=== PATIENT | female | born 1970 ===

== ENCOUNTER 2022-08-28 16:16 | Inpatient (IN) | payer OTHER, SELFPAY ==
[2022-08-28 17:06] VITALS: BP 163/121; PULSE 100; RESP 14; TEMP 36.4; O2SAT 99; BMI 32.0
[2022-08-28 17:27] VITALS: BP 163/122; PULSE 114; RESP 18; O2SAT 96
--- NOTE | 2022-08-28 17:44 | ED.C_ITS ---
HPI - Psych General: Chief Complaint: Psychiatric Symptoms Stated Complaint: Psych Eval Time Seen by Provider: 08/28/22 17:21 History of Present Illness: 52-year-old female presents to the ER for psychiatric clearance. Patient reports that she agreed to come to the ER because she wants to get rid of her kids patient reports that she has older children that have mental health problems and she reports that they feel that she is having mental health problems. Patient has family members who are hospital staff and they report that she is has a history of bipolar although she does not not admit to it. They report that she is a cousin and has not been acting normal. They believe she is in a manic phase of her bipolar. Patient talks very rapidly. Patient will not admit to having any rapid thoughts. She denies any thoughts of wanting to harm herself or others. Patient requested a letter that she is medically clear and psychiatric clear. Patient does agree to have labs done and agrees to speak with a psychiatrist. Review of Systems Const: Denies: fever(s) or chills Card: Denies: chest pain or palpitations Resp: Denies: dyspnea or productive cough Musc: Denies: neck pain or back pain Skin/Breast: Denies: rash or pruritus Psych: Reports: other (Please see HPI) Physical Exam Const: GENERAL APPEARANCE: cooperative and well kempt Eye: GENERAL EYE: appearance normal, both eyes and all related structures Resp: COMMON NORMALS: normal respiratory effort, No use of accessory muscles and clear to auscultation bilaterally AUSCULTATION: clear to auscultation bilaterally Cardio: COMMON NORMALS: regular rate and regular rhythm RATE: regular rate RHYTHM: regular rhythm Psych: APPEARANCE: Yes well kempt SPEECH: Yes rapid MOOD & AFFECT: Yes elevated mood ATTENTION/CONCENTRATION: Yes attention grossly intact MEMORY/COGNITION: Yes memory grossly intact Skin: COMMON NORMALS: no rashes or lesions noted GENERAL SKIN EXAM: no rashes or lesions noted Course Vital Signs: Vital signs: Vital Signs Temperature 97.5 F L 08/28/22 17:06 Pulse Rate 114 H 08/28/22 17:27 Respiratory Rate 18 08/28/22 17:27 Blood Pressure 163/122 08/28/22 17:27 Pulse Oximetry 96 08/28/22 17:27 Oxygen Delivery Me thod 08/28/22 17:27 MDM - Psych Medical Decision Making Patient is very sporadic in her thoughts and is consistent with a manic episode. 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 Discussed with Dr. Garcia. We will have family fill out an affidavit and will have her placed on a 96-hour hold. Patient to be admitted to the Neuropsych Unit. Patient was stable upon admission Lab Data : 08/28/22 Unknown 08/28/22 Unknown Laboratory Results WBC 8.9 10^3/uL (4.0-10.0) 08/28/22 Unknown RBC 4.89 10^6/uL (4.1-5.3) 08/28/22 Unknown Hgb 14.4 g/dL (11.5-15.3) 08/28/22 Unknown Hct 43.7 % (37.0-47.0) 08/28/22 Unknown MCV 89.4 fl (81-99) 08/28/22 Unknown MCH 29.4 pg (28.0-34.0) 08/28/22 Unknown MCHC 33.0 g/dL (30.0-36.0) 08/28/22 Unknown RDW 12.8 % (12.1-15.1) 08/28/22 Unknown Plt Count 283 10^3/cmm (130-400) 08/28/22 Unknown MPV 9.7 fL (7.4-10.4) 08/28/22 Unknown Neut % (Auto) 63.1 % 08/28/22 Unknown Lymph % (Auto) 26.2 % 08/28/22 Unknown [place] % (Auto) 7.5 % 08/28/22 Unknown Eos % (Auto) 2.0 % 08/28/22 Unknown Baso % (Auto) 0.8 % 08/28/22 Unknown Neut # (Auto) 5.62 10^3/uL (1.8-7.7) 08/28/22 Unknown Lymph # (Auto) 2.3 10^3/uL (0.8-4.8) 08/28/22 Unknown [place] # (Auto) 0.7 10^3/uL (0.2-0.9) 08/28/22 Unknown Eos # (Auto) 0.2 10^3/uL (0.0-0.8) 08/28/22 Unknown Baso # (Auto) 0.1 10^3/uL (0.0-0.1) 08/28/22 Unknown Nucleated RBC % (auto) 0 % 08/28/22 Unknown Nucleated RBCs # 0.0 /100WBC 08/28/22 Unknown Sodium 139 mmol/L (136-145) 08/28/22 Unknown Potassium 3.7 mmol/L (3.5-5.1) 08/28/22 Unknown Chloride 101 mmol/L (98-107) 08/28/22 Unknown Carbon Dioxide 28 mmol/L (22-29) 08/28/22 Unknown Anion Gap 13.7 (5-19) 08/28/22 Unknown BUN 12 mg/dL (6-20) 08/28/22 Unknown Creatinine 0.6 mg/dL (0.5-0.9) 08/28/22 Unknown GFR Calculation 105.4 mL/min (90-130) 08/28/22 Unknown Glucose 118 mg/dL (65-115) H 08/28/22 Unknown Calculated Osmolality 289 mOsm/kg (285-295) 08/28/22 Unknown Calcium 9.6 mg/dL (8.5-10.5) 08/28/22 Unknown Total Bilirubin 0.4 mg/dL (0.15-1.2) 08/28/22 Unknown AST 40 U/L (0-32) H 08/28/22 Unknown ALT 61 U/L (0-33) H 08/28/22 Unknown Alkaline Phosphatase 115 U/L (35-105) H 08/28/22 Unknown Total Protein 7.6 g/dL (6.6-8.7) 08/28/22 Unknown Albumin 4.1 g/dL (3.5-5.2) 08/28/22 Unknown Globulin 3.5 g/dL (1.3-4.6) 08/28/22 Unknown Salicylates < 0.3 mg/dL (3-10) L 08/28/22 Unknown Acetaminophen < 5.0 ug/mL (10-30) L 08/28/22 Unknown Discharge Plan Discharge Condition: Stable Prescriptions: No Action No Known Home Medications Coding Level of Care Code ED Payment Manager for g Fwd Exam Detailed
[2022-08-28 17:54] LABS: Basophils # 0.1 10^3/uL (0.0-0.1); Basophils % 0.8 %; Eosinophils # 0.2 10^3/uL (0.0-0.8); Hematocrit 43.7 % (37.0-47.0); Hemoglobin 14.4 g/dL (11.5-15.3); Lymphocytes # 2.3 10^3/uL (0.8-4.8); Lymphocytes % 26.2 %; Mean Corpuscular Hemoglobin 29.4 pg (28.0-34.0); Mean Corpuscular Volume 89.4 fl (81-99); Mean Platelet Volume 9.7 fL (7.4-10.4); Monocytes # 0.7 10^3/uL (0.2-0.9); Monocytes % 7.5 %; Neutrophils # 5.62 10^3/uL (1.8-7.7); Neutrophils % 63.1 %; Nucleated Red Blood Cells % 0 %; Platelet Count 283 10^3/cmm (130-400); Red Blood Count 4.89 10^6/uL (4.1-5.3); Red Cell Distribution Width 12.8 % (12.1-15.1); White Blood Count 8.9 10^3/uL (4.0-10.0)
[2022-08-28 18:17] LABS: Alanine Aminotransferase 61 U/L (0-33); Albumin Level 4.1 g/dL (3.5-5.2); Alkaline Phosphatase 115 U/L (35-105); Anion Gap 13.7 (5-19); Aspartate Amino Transferase 40 U/L (0-32); Blood Urea Nitrogen 12 mg/dL (6-20); Calcium 9.6 mg/dL (8.5-10.5); Carbon Dioxide 28 mmol/L (22-29); Chloride 101 mmol/L (98-107); Globulin 3.5 g/dL (1.3-4.6); Glomerular Filtration Rate 105.4 mL/min (90-130); Glucose 118 mg/dL (65-115); Osmolality Calculated 289 mOsm/kg (285-295); Potassium 3.7 mmol/L (3.5-5.1); Sodium 139 mmol/L (136-145); Total Bilirubin 0.4 mg/dL (0.15-1.2); Total Protein 7.6 g/dL (6.6-8.7)
[2022-08-28 18:20] LABS: Acetaminophen < 5.0 ug/mL (10-30); Salicylate < 0.3 mg/dL (3-10)
[2022-08-28 20:40] LABS: Add Urine Microscopic? NO; Charge for UA Resulting for Rev
[2022-08-28 20:46] LABS: Urine Appearance Clear (CLEAR); Urine Color Yellow (Yellow); pH Urine 5 (5-7)
[2022-08-28 20:47] LABS: Bilirubin Urine Neg (Negative); Blood Urine Neg (Negative); Glucose Urine UA Norm (Normal); Ketones Urine Negative (Negative); Leukocyte Esterase Urine Negative (Negative); Nitrate Urine Negative (Negative); Protein Urine Neg (Negative); Urobilinogen Urine Norm (Negative)
[2022-08-28 20:55] LABS: Amphetamines Screen Urine Negative (Negative); Barbiturates Screen Urine Negative (Negative); Benzodiazepines Screen Urine Negative (Negative); Cocaine Screen Urine Negative (Negative); Opiate Screen Urine Negative (Negative); PCP Screen Urine Negative (Negative); THC Screen Urine Negative (Negative)
--- NOTE | 2022-08-28 21:42 | PC.NURSE ---
Report given to RADHA Bautista
[2022-08-28 22:24] VITALS: BP 162/95; PULSE 79; RESP 18; TEMP 36.3; O2SAT 99
[2022-08-29 06:00] VITALS: BP 158/88; PULSE 85; RESP 16; TEMP 36.6; O2SAT 97
--- NOTE | 2022-08-29 10:55 | PC.NURSE ---
although initial admission assessment reported patient did not have any dietary restrictions, pt reports she cannot eat pork due to cultural or yazidism reasons. added that in dietary.
[2022-08-29 14:00] VITALS: BP 115/94; PULSE 85; RESP 15; TEMP 36.5; O2SAT 99
--- NOTE | 2022-08-29 15:08 | W.PM.NPUH&PS ---
Providers/Chief Complaint Admitting Physician: Cody Garcia MD Chief Complaint: Psych Eval HPI NPU History of Present Illness Monique Jean is a 52 year old female who presented to the emergency department with the following report: Chief Complaint: Psychiatric Symptoms Stated Complaint: Psych Eval Time Seen by Provider: 08/28/22 17:21 History of Present Illness: 52-year-old female presents to the ER for psychiatric clearance. Patient reports that she agreed to come to the ER because she wants to get rid of her kids patient reports that she has older children that have mental health problems and she reports that they feel that she is having mental health problems. Patient has family members who are hospital staff and they report that she is has a history of bipolar although she does not not admit to it. They report that she is a cousin and has not been acting normal. They believe she is in a manic phase of her bipolar. Patient talks very rapidly. Patient will not admit to having any rapid thoughts. She denies any thoughts of wanting to harm herself or others. Patient requested a letter that she is medically clear and psychiatric clear. Patient does agree to have labs done and agrees to speak with a psychiatrist. The patient was admitted to the neuropsychiatric unit for definitive treatment of those issues. She presents today reporting she has been in multiple inpatient services since 2013 but each of them she describes as some kind of trap that lead to her being hospitalized for inappropriate reasons a couple of times in [place] in [facility] and [place] and 2018 in [place]. She reports one time she did not move for 40 days and another time for 28 days. She was very pressured in her speech and sometimes hard to follow but reported that she has never had outpatient services but has been on medications which she reports she has been tricked to be on and spent much of the time that the 39 medications which have been created in [place] ultimately hurt the person that they are treating. She reports she has been on multiple medications. She denies tobacco, alcohol, marijuana or any other illicit drug use or use in her life. She has not had drug and alcohol treatment or drug and alcohol related charges. She presents today that this is all a part of an elaborate ruse from her son, who she made sure to make known to this resume writer that he was on medications for years, came to see her in [place] where she had been living in some way estranged from her after which they flew to [place] and drove from [facility] to [place] where they had dinner before coming to [place]. She reports [facility] the [facility]. She gives this elaborate story of how when she went in they grabbed her and tried to exorcise her demons from her body and reported that they were very ritualistic and were not letting her move as they tried to get these demons ejected. She reports that when she arrived at that adventism, she discovered her was there, who she had not seen in a while, along with her children and that some physician who was a sales operations consultant and after which she went to the hotel on the first day. On the next day, she went to the sales operations consultant?s house and at that time they once again tried to do this exorcism and try to get rid of demons. She reports she does not know why they decided to bring her here and that all she needs is a letter from the doctor stating that her kids could not pull this kind of trick on her ever again. 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 The words she would use, which were very common words, to attempt to explain to this resume writer that she has lived all over the world in [facility], [place], in [facility], and in different places in the [facility]. She reports the things they were attempting to do to her they must have learned from Giorgio Carroll, who she reports is an apostolic sales operations consultant that teaches these kinds of approaches to dealing with people?s struggles. 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 She talked in very expansive fashion about different topics. She does not believe there is anything going on with her and is not interested in any interventions. She reported that people just need to leave her alone. She could not provide anyone we could speak to that would be able to confirm any aspect of her story. She denies any mental illness, reports she is perfectly fine, and anytime there was a mental health intervention, it was under less than truthful circumstances. Psychiatric History: As above. Substance Abuse History: As above. Family History: She denies any mental health or addiction issues in her family. She denies suicide attempts or completions in her family. Developmental History: She denies any issues with her or , learned to walk and talk and met her developmental milestones on time and denies any need for speech therapy, learning support, emotional support or special education classes. Psychosocial History: She reports her parents were together when she was born and remained together. She has an older and a younger brother. She reports her childhood was fine and she came from a fairly well of family. She denies emotional, physical or sexual abuse. She was hard to follow when we talked about traumas. She could not really elaborate on the difficulties between her and her but did articulate that he came up with Whats[employer] in his cellphone. She endorsed graduating high school, going to college, getting multiple PhDs, Masters degrees, etc. She endorsed she has been 27 years, has a son and daughter and endorses being [place]. 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 She reports she had rented a house in [place] for the last 2 months when her son brought her out here. Legal History: She denies any legal issues. Medical History: She denies any medical issues except that she reports she is going through menopause. She had her children vaginally. Meds NPU Home Medications Medication Instructions Recorded Confirmed Last Taken Type No Known Home Medications 08/28/22 08/28/22 Unknown History Allergies Allergy/AdvReac Type Severity Reaction Status Date / Time No Known Allergies Allergy Verified 08/28/22 18:06 Mental Status Exam MSE Comments: This is an overweight [place] woman in hospital scrubs with limited grooming and eye contact. No abnormal movements except for psychomotor retardation. Cooperative with exam in mild to moderate distress. Speech was increased rate and volume with strong [place] accent suggesting that is her first language. Mood described as fine, affect is elevated. Thought process, organized but with flightive ideas and with tangentiality. Thought content: patient denies suicidal or homicidal ideation, no delusions reported but significant grandiosity noted and some possible persucatory delusions. Attention and concentration are intact and memory appeared reliable though none were formally tested. She is alert and oriented to person, place and time but not purpose. Insight and judgment are impaired. Impulse control is impaired. Vitals/I&O/Wt Last Vital Signs Temp 97.8 F 08/29/22 06:00 Pulse 85 08/29/22 06:00 Resp 16 08/29/22 06:00 BP 158/88 08/29/22 06:00 Pulse Ox 97 08/29/22 06:00 O2 Del Method 08/28/22 22:25 Weight last 48 hrs Weight 79.379 kg Data NPU : 08/28/22 Unknown 08/28/22 Unknown A&P Assessment and plan (1) Keena: (2) Psychosis: Plan This is a 52 year old [place] born woman with a possible history of keena/bipolar disorder in the past who presents appearing manic and off of medication but not believing she needs any assistance, believing that the ones who brought her here are the ones who need help. 1. Continue current medications. Will continue to suggest mood stabilizer. 2. Encourage individual, group and milieu therapy 3. Continue q-15 minute check for safety Involuntary Hold Information 96 Hour Hold: 96 Hour Involuntary Admission: Yes 96 Hour Hold Ending Date: 09/04/22 96 Hour Hold Ending Time: 22:25 Attestations NPU Medical Necessity Statement*: Inpatient hospitalization is medically necessary and the clinically appropriate intervention at this time. We will monitor medications and make changes as indicated. Patient will be in the hospital for over two midnights. Likely length of stay is three to five days. Coding Level of Care Code Acute Rib Puller for Ever Rose Diagnoses Keena F30.9 Psychosis F29
--- NOTE | 2022-08-29 15:38 | PC.NURSE ---
AT APPROXIMATELY 1514 PATIENT WAS ON THE PHONE AND BEGAN YELLING AND WAS ASKED TO QUIET DOWN IT WAS DISRUPTING EVERYONE ELSE. PT STATED, THIS IS HOW WE SPEAK IN MY CULTURE SO PEOPLE WILL LISTEN. AND BEGAN YELLING AGAIN. PHONE TURNED OFF AND PT VERBALIZED UNDERSTANDING THAT YELLING ON THE PHONE WOULD NOT BE TOLERATED.
--- NOTE | 2022-08-29 17:02 | PC.NURSE ---
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
[2022-08-29 20:36] VITALS: PULSE 80; RESP 161; TEMP 36.4
[2022-08-30 06:00] VITALS: RESP 18
[2022-08-30 14:00] VITALS: BP 134/85; PULSE 74; RESP 16; TEMP 36.6; O2SAT 97
--- NOTE | 2022-08-30 17:03 | W.PM.NPUPNS ---
Mental Status Exam MSE Comments: This is an overweight [place] woman in hospital scrubs with limited grooming and eye contact. No abnormal movements except for psychomotor agitation. Cooperative with exam in mild to moderate distress. Speech was pressured with increased rate and volume with strong [place] accent suggesting that is her first language. Mood described as I will be better when you let me out, affect is elevated. Thought process, organized but with flight of ideas and with tangentiality. Thought content: patient denies suicidal or homicidal ideation, no delusions reported but significant grandiosity noted and some possible persecutory delusions. Attention and concentration are intact and memory appeared reliable though none were formally tested. She is alert and oriented to person, place and time but not purpose. Insight and judgment are impaired. Impulse control is impaired. Vitals/I&O/Wt Last Vital Signs Temp 98.2 F 08/30/22 21:56 Pulse 89 08/30/22 21:56 Resp 18 08/30/22 21:56 BP 149/87 08/30/22 21:56 Pulse Ox 98 08/30/22 21:56 O2 Del Method 08/30/22 21:56 Data NPU : 08/28/22 Unknown 08/28/22 Unknown A&P Assessment and plan (1) Juanita: (2) Psychosis: Plan This is a 52 year old Citizen [place] born woman with a possible history of juanita/bipolar disorder in the past who presents appearing manic and off of medication but not believing she needs any assistance, believing that the ones who brought her here are the ones who need help. 1. Continue current medications. Will continue to suggest mood stabilizer. 2. Encourage individual, group and milieu therapy 3. Continue q-15 minute check for safety 4. Pursue collateral information from family. Involuntary Hold Information 96 Hour Hold: 96 Hour Involuntary Admission: Yes 96 Hour Hold Ending Date: 09/04/22 96 Hour Hold Ending Time: 22:25 Attestations NPU Medical Necessity Statement*: Inpatient hospitalization is medically necessary and the clinically appropriate intervention at this time. We will monitor medications and make changes as indicated. Likely length of stay is 4-6 days. Coding Level of Care Code Acute Profiling Machine Setup Operator for Estephanieg Fwd Diagnoses Juanita F30.9 Psychosis F29
[2022-08-30 21:56] VITALS: BP 149/87; PULSE 89; RESP 18; TEMP 36.8; O2SAT 98
--- NOTE | 2022-08-30 21:58 | PC.NURSE ---
Patient's , Dayo Jean is requesting ( via Dr. Bearden ) a call from Dr. Frazier with an update of patient's situation / condition. He is on authorization. to discuss. His Ph. # is [phone]. I put a note on Dr. Frazier's desk.
--- NOTE | 2022-08-31 08:26 | PC.NURSE ---
Behavioral Assessment Patient denies AH/VH. Also denies SI/HI. Patient states she slept well despite her roommate screaming about demons. She said this didn't bother her much. Patient stated she has only been in [place] since Sunday (08/25/22) and then came here because of a dispute with her family. She states she came to [place] to see a [facility] doctor. Patient pleasant this morning.
--- NOTE | 2022-08-31 13:09 | P.NPUPN_ITS ---
Subjective NPU Subjective: Patient presents today continuing to report delusional and grandiose assertions. The more she got frustrated about the prospect of staying as we discussed a 21-day hold the more her assertions escalated and there absurdity. She reported having a neurologist that was the first neurologist in [facility] take her off of her medications. She reported that the [place] government will find out about what we are doing and would come and retrieve her in a way that we would not find pleasing. She had copious writings about people of importance and her connection with them. Mental Status Exam MSE Comments: This is an overweight [place] woman in hospital scrubs with limited grooming and eye contact. No abnormal movements except for psychomotor agitation. Cooperative with exam in mild to moderate distress. Speech was pressured with increased rate and volume with strong [place] accent suggesting that is her first language. Mood described as I just need to leave, affect is elevated. Thought process, organized but with flight of ideas and with tangentiality. Thought content: patient denies suicidal or homicidal ideation, no delusions reported but significant grandiosity noted and some possible perse cutory delusions. Attention and concentration are intact and memory appeared reliable though none were formally tested. She is alert and oriented to person, place and time but not purpose. Insight and judgment are impaired. Impulse control is impaired. Vitals/I&O/Wt Last Vital Signs Temp 98.2 F 08/30/22 21:56 Pulse 89 08/30/22 21:56 Resp 18 08/30/22 21:56 BP 149/87 08/30/22 21:56 Pulse Ox 98 08/30/22 21:56 O2 Del Method 08/30/22 21:56 Data NPU : 08/28/22 Unknown 08/28/22 Unknown A&P Assessment and plan (1) Juanita: (2) Psychosis: Plan This is a 52 year old [place] born woman with a possible history of juanita/bipolar disorder in the past who presents appearing manic and off of medication but not believing she needs any assistance, believing that the ones who brought her here are the ones who need help. 1. Continue current medications. Will continue to suggest mood stabilizer. 2. Encourage individual, group and milieu therapy 3. Continue q-15 minute check for safety 4. File for 21-day hold tomorrow. Involuntary Hold Information 96 Hour Hold: 96 Hour Involuntary Admission: Yes 96 Hour Hold Ending Date: 09/04/22 96 Hour Hold Ending Time: 22:25 Attestations NPU 2 Medical Necessity Statement*: Inpatient hospitalization is medically necessary and the clinically appropriate intervention at this time. We will monitor medica tions and make changes as indicated. Likely length of stay is 7-10 days. Coding Level of Care Code Acute Insole Bottom Filler for [facility] Fwd Diagnoses Juanita F30.9 Psychosis F29
[2022-08-31 14:00] VITALS: BP 150/82; PULSE 71; RESP 16; TEMP 36.7; O2SAT 97
[2022-08-31 21:27] VITALS: BP 148/99; PULSE 96; RESP 17; TEMP 36.5; O2SAT 98
[2022-09-01 06:00] VITALS: BP 148/91; PULSE 65; RESP 16; TEMP 36.3; O2SAT 96
--- NOTE | 2022-09-01 11:19 | W.PM.NPUPNS ---
Subjective NPU Subjective: Patient presents today reporting that we might well kill her trying to practice Hong Konger medicine on her because they do not do medicine like that in [place]. When I brought up the fact that the record suggested that they did just that in her last hospitalization in [facility] she gave some alternative narrative of how that was not really an [place] hospital. She came into all-day about how she should get some food because the medication will take her cognition and take her senses like her taste. She was still refusing medication and we discussed the fact that we filed a 21-day hold. Mental Status Exam MSE Comments: This is an overweight [place] woman in hospital scrubs with limited grooming and eye contact. No abnormal movements except for psychomotor agitation. Cooperative with exam in mild to moderate distress. Speech was pressured with increased rate and volume with strong Salvad[place] accent suggesting that is her first language. Mood described as I am fine I just want to go, affect is elevated and phonetic. Thought process, organized but with flight of ideas and with tangentiality. Thought content: patient denies suicidal or homicidal ideation, no delusions reported but significant grandiosity noted and some possible persecutory delusions, and she denied auditory or visual hallucinations. Attention and concentration are mostly intact and memory appeared unreliable though none were formally tested. She is alert and oriented to person, place and time but not purpose. Insight and judgment are impaired. Impulse control is impaired. Vitals/I&O/Wt Last Vital Signs Temp 97.7 F 08/31/22 21:27 Pulse 96 08/31/22 21:27 Resp 17 08/31/22 21:27 BP 148/99 08/31/22 21:27 Pulse Ox 98 08/31/22 21:27 O2 Del Method 08/31/22 21:27 Data NPU : 08/28/22 Unknown 08/28/22 Unknown A&P Assessment and plan (1) Juanita: (2) Psychosis: Plan This is a 52 year old Salv[place] born woman with a possible history of juanita/bipolar disorder in the past who presents appearing manic and off of medication but not believing she needs any assistance, believing that the ones who brought her here are the ones who need help. 1. Continue current medications. Will continue to suggest mood stabilizer. 2. Encourage individual, group and milieu therapy 3. Continue q-15 minute check for safety 4. Filed for 21-day hold this morning. Involuntary Hold Information 96 Hour Hold: 96 Hour Involuntary Admission: Yes 96 Hour Hold Ending Date: 09/04/22 96 Hour Hold Ending Time: 22:25 Attestations NPU Medical Necessity Statement*: Inpatient hospitalization is medically necessary and the clinically appropriate intervention at this time. We will monitor medications and make changes as indicated. Likely length of stay is 7-10 days. Coding Level of Care Code Acute Forging Press Operator for g Fwd Diagnoses Juainta F30.9 Psychosis F29
--- NOTE | 2022-09-01 13:48 | PC.NURSE ---
Pt is pacing the hallways, almost stomping her feet, excessive speech about protecting ones family and children . She also stated that on sunday the doctor is going to take her taste away and she demanded salt packets. Pt was given salt packets, pt still pacing.
[2022-09-01 14:00] VITALS: BP 121/70; PULSE 81; RESP 16; O2SAT 97
[2022-09-01 21:59] VITALS: BP 133/83; PULSE 72; RESP 15; O2SAT 96
[2022-09-02 06:00] VITALS: BP 115/74; PULSE 54; RESP 20; O2SAT 98
--- NOTE | 2022-09-02 12:52 | P.NPUPN_ITS ---
Subjective NPU Subjective: Patient presents today reporting that things are okay. She was on a geography kick today. 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 Then she went on a rant about being asked by the nurses about her bowel movements. 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 We discussed that she likely served for her 21-day hold hearing on Sunday and that we imagine her hearing will be on Sunday. Mental Status Exam MSE Comments: This is an overweight [place] woman in hospital scrubs with limited grooming and eye contact. No abnormal movements except for psychomotor agitation. Cooperative with exam in mild to moderate distress. Speech was press ured with increased rate and volume with strong [place] accent suggesting that is her first language. Mood described as I do not really want to talk you, affect is elevated and frenetic. Thought process, organized but with flight of ideas and with tangentiality. Thought content: patient denies suicidal or homicidal ideation, no delusions reported but significant grandiosity noted and some possible persecutory delusions, and she denied auditory or visual hallucinations. Attention and concentration are mostly intact and memory appeared unreliable though none were formally tested. She is alert and oriented to person, place and time but not purpose. Insight and judgment are impaired. Impulse control is impaired. Vitals/I&O/Wt Last Vital Signs Temp 97.4 F L 09/01/22 06:00 Pulse 54 L 09/02/22 06:00 Resp 20 H 09/02/22 06:00 BP 115/74 09/02/22 06:00 Pulse Ox 98 09/02/22 06:00 O2 Del Method 09/01/22 14:00 Data NPU : 08/28/22 Unknown 08/28/22 Unknown A&P Assessment and plan (1) Juanita: (2) Psychosis: Plan This is a 52 year old [place] born woman with a possible history of juanita/bipolar disorder in the past who presents appearing manic and off of medication but not believing she needs any assistance, believing that the ones who brought her here are the ones who need help. 1. Continue current medications. Will continue to suggest mood stabilizer. 2. Encourage individual, group and milieu therapy 3. Continue q-15 minute check for safety 4. Filed for 21-day hold 09/01/2022. Involuntary Hold Information 96 Hour Hold: 96 Hour Involuntary Admission: Yes 96 Hour Hold Ending Date: 09/04/22 96 Hour Hold Ending Time: 22:25 Attestations NPU Medical Necessity Statement*: Inpatient hospitalization is medically necessary and the clinically appropriate intervention at this time. We will monitor medications and make changes as indicated. Likely length of stay is 7-10 days. Coding Level of Care Code Acute Irrigator Valve Pipe for Ever Fwd Diagnoses Juanita F30.9 Psychosis F29
[2022-09-02 14:00] VITALS: BP 133/89; PULSE 93; RESP 16; TEMP 36.8; O2SAT 97
[2022-09-02 19:11] VITALS: RESP 16
[2022-09-03 06:00] VITALS: BMI 32.0
--- NOTE | 2022-09-03 10:36 | PC.NURSE ---
IN ROOM. VERY ANIMATED DURING ASSESSMENT. YELLING AND STATING SHE HAD AN EXORCISM AND THAT IS WHY SHE IS HERE. PT WAS VERBALLY DESCALATED AND IS NOW IN THE DAY ROOM READING THE EVANGELICAL BIBLE. DENIES SI/HI AND AVH AT THIS TIME. STATES THESE QUESTIONS ARE RIDICULOUS AND HER HOLD IS UP TOMORROW AND SHE WANTS TO LEAVE. PT ALSO STATES I'M TRYING TO TEACH DR. GREEN LESSONS, HE DOESN'T KNOW NOTHING ABOUT NOTHING. I GUESS MY SON SENT ME HERE TO TEACH HIM. PT THEN PICKED UP HER 96 HOUR HOLD PAPER WORK AND STARTED YELLING SEE THIS IS WHY I'M HERE. THE PAPER HAD THE WORD EXORCISM WRITTEN ON THE BACK. SHE STATES HER SON HAD DONE THE EXERCISM FOR 4 DAYS THEN SENT HER HERE. ANXIETY MEDS OFFERED BUT PT DECLINED.
--- NOTE | 2022-09-03 10:51 | W.PM.NPUPNS ---
Subjective NPU Subjective: Patient presents today reporting that she is not interested in taking medication and that she just wants to go back to [place]. She now reports that one of the reasons why she does not want take medication is that she is not in fact Pentecostal she is Yarsanism and she reports that Hindus do not take psychiatric medications. We discussed that that is not true and that even if she is going back to [place] we need to ensure she is safe prior to discharge. We discussed that we are unsure why she was not served on Sunday, but that she would likely be served tomorrow and have her hearing Sunday or Sunday. We spent quite a bit of time discussing what juanita is as she tries to debunk the idea that she is manic. Mental Status Exam MSE Comments: This is an overweight Citizen [place] woman in hospital scrubs with adequate grooming and eye contact. No abnormal movements except for occasional psychomotor agitation. Cooperative with exam in mild to moderate distress. Speech was pressured with increased rate and volume with strong [place] accent suggesting that is her first language. Mood described as I am fine, affect is less elevated and frenetic at times. Thought process, organized but with flight of ideas and with tangentiality. Thought content: patient denies suicidal or homicidal ideation, no delusions reported but significant grandiosity noted and some possible persecutory delusions, and she denied auditory or visual hallucinations. Attention and concentration are mostly intact and memory appeared unreliable though none were formally tested. She is alert and oriented to person, place and time but not purpose. Insight and judgment are impaired. Impulse control is impaired. Vitals/I&O/Wt Last Vital Signs Temp 98.2 F 09/02/22 14:00 Pulse 93 09/02/22 14:00 Resp 16 09/02/22 19:11 BP 133/89 09/02/22 14:00 Pulse Ox 97 09/02/22 14:00 O2 Del Method 09/01/22 14:00 Data NPU : 08/28/22 Unknown 08/28/22 Unknown A&P Assessment and plan (1) Juanita: (2) Psychosis: Plan This is a 52 year old Citizen [place] born woman with a possible history of juanita/bipolar disorder in the past who presents appearing manic and off of medication but not believing she needs any assistance, believing that the ones who brought her here are the ones who need help. 1. Continue current medications. Will continue to suggest mood stabilizer. 2. Encourage individual, group and milieu therapy 3. Continue q-15 minute check for safety 4. Filed for 21-day hold 09/01/2022. Involuntary Hold Information 96 Hour Hold: 96 Hour Involuntary Admission: Yes 96 Hour Hold Ending Date: 09/04/22 96 Hour Hold Ending Time: 22:25 Attestations NPU Medical Necessity Statement*: Inpatient hospitalization is medically necessary and the clinically appropriate intervention at this time. We will monitor medications and make changes as indicated. Likely length of stay is 7-10 days. Coding Level of Care Code Acute Domestic Housekeeper for g Fwd Diagnoses Juanita F30.9 Psychosis F29
[2022-09-03 14:00] VITALS: BP 115/77; PULSE 76; RESP 16; TEMP 36.4; O2SAT 95
[2022-09-03 21:12] VITALS: BP 104/66; PULSE 86; RESP 17; TEMP 37; O2SAT 98
[2022-09-04 14:00] VITALS: BP 146/94; PULSE 86; RESP 18; O2SAT 99
--- NOTE | 2022-09-04 14:34 | P.NPUPN_ITS ---
Subjective NPU Subjective: Patient presented today continuing to have manic symptoms and being very focused on her irritation at her family trapping her and the likelihood that she is going to be here for a while taking medication. We discussed her hearing which is supposed to be Sunday now. She continues to be resistant to medication and we continue to discuss that taking the medication is her fastest route to discharge. Mental Status Exam MSE Comments: This is an overweight [place] woman in hospital scrubs with jaqueline quate grooming and eye contact. No abnormal movements except for occasional psychomotor agitation. Cooperative with exam in mild to moderate distress. Speech was pressured with increased rate and volume with strong [place] accent suggesting that is her first language. Mood described as upset with her and family, affect is elevated and frenetic at times. Thought process, organized but with flight of ideas and with tangentiality. Thought content: patient denies suicidal or homicidal ideation, no delusions reported but significant grandiosity noted and some possible persecutory delusions, and she denied auditory or visual hallucinations. Attention and concentration are mostly intact and memory appeared unreliable though none were formally tested. She is alert and oriented to person, place and time but not purpose. Insight and judgment are impaired. Impulse control is impaired. Vitals/I&O/Wt Last Vital Signs Temp 98.6 F 09/03/22 21:12 Pulse 86 09/03/22 21:12 Resp 17 09/03/22 21:12 BP 104/66 09/03/22 21:12 Pulse Ox 98 09/03/22 21:12 O2 Del Method 09/03/22 21:12 Weight last 48 hrs Weight 79.379 kg Data NPU : 08/28/22 Unknown 08/28/22 Unknown A&P Assessment and plan (1) Juanita: (2) Psychosis: Plan This is a 52 year old [place] born woman with a possible history of juanita/bipolar disorder in the past who presents appearing manic and off of medication but not believing she needs any assistance, believing that the ones who brought her here are the ones who need help. 1. Continue current medications. Will continue to suggest mood stabilizer. 2. Encourage individual, group and milieu therapy 3. Continue q-15 minute check for safety 4. Filed for 21-day hold 09/01/2022, hearing will be 09/06/2022. Involuntary Hold Information 96 Hour Hold: 96 Hour Involuntary Admission: Yes 96 Hour Hold Ending Date: 09/04/22 96 Hour Hold Ending Time: 22:25 Attestations NPU Medical Necessity Statement*: Inpatient hospitalization is medically necessary and the clinically appropriate intervention at this time. We will monitor medications and make changes as indicated. Likely length of stay is 7-10 days. Coding Level of Care Code Acute River Boat Captain for g Fwd Diagnoses Juanita F30.9 Psychosis F29
[2022-09-04 22:00] VITALS: BP 155/77; PULSE 90; RESP 17; TEMP 36.7; O2SAT 97
[2022-09-05 06:00] VITALS: BP 124/84; PULSE 79; RESP 16; TEMP 36.4; O2SAT 94
[2022-09-05 14:00] VITALS: BP 130/80; PULSE 82; RESP 20; TEMP 36.6; O2SAT 98
--- NOTE | 2022-09-05 17:47 | W.PM.NPUPNS ---
Subjective NPU Subjective: Patient presents today fairly agitated throughout the day pacing the halls, having random conversations with people and seeming fairly agitated. She did visit with her son with similar behavior. She continues to be resistant to medication. She was finally served by the [facility] and will have her 21-day hold hearing tomorrow. We once again reviewed the process with her and her family. Mental Status Exam MSE Comments: This is an overweight [place] woman in hospital scrubs with adequate grooming and eye contact. No abnormal movements except for significant psychomotor agitation. Cooperative with exam in moderate to extreme distress. Speech was pressured with increased rate and volume with strong [place] accent suggesting that is her first language. Mood described as upset with her and family, affect is elevated and frenetic. Thought process, organized but with flight of ideas and with tangentiality. Thought content: patient denies suicidal or homicidal ideation, no delusions reported but significant grandiosity noted and some possible persecutory delusions, and she denied auditory or visual hallucinations. Attention and concentration are mostly intact and memory appeared unreliable though none were formally tested. She is alert and oriented to person, place and time but not purpose. Insight and judgment are impaired. Impulse control is impaired. Vitals/I&O/Wt Last Vital Signs Temp 97.9 F 09/05/22 21:58 Pulse 87 09/05/22 21:58 Resp 16 09/05/22 21:58 BP 134/86 09/05/22 21:58 Pulse Ox 97 09/05/22 21:58 O2 Del Method 09/05/22 21:58 Data NPU : 08/28/22 Unknown 08/28/22 Unknown A&P Assessment and plan (1) Juanita: (2) Psychosis: Plan This is a 52 year old [place] born woman with a possible history of juanita/bipolar disorder in the past who presents appearing manic and off of medication but not believing she needs any assistance, believing that the ones who brought her here are the ones who need help. 1. Continue current medications. Will continue to suggest mood stabilizer. 2. Encourage individual, group and milieu therapy 3. Continue q-15 minute check for safety 4. Filed for 21-day hold 09/01/2022, hearing will be tomorrow, 09/06/2022 at 1 PM. Involuntary Hold Information 96 Hour Hold: 96 Hour Involuntary Admission: Yes 96 Hour Hold Ending Date: 09/04/22 96 Hour Hold Ending Time: 22:25 Attestations NPU Medical Necessity Statement*: Inpatient hospitalization is medically necessary and the clinically appropriate intervention at this time. We will monitor medications and make changes as indicated. Likely length of stay is 7-10 days. Coding Level of Care Code Acute Table And Desk Finisher for Chg Fwd Diagnoses Juanita F30.9 Psychosis F29
[2022-09-05 21:58] VITALS: BP 134/86; PULSE 87; RESP 16; TEMP 36.6; O2SAT 97
[2022-09-06 06:00] VITALS: BP 132/76; PULSE 76; RESP 18; TEMP 36.4; O2SAT 98
--- NOTE | 2022-09-06 12:06 | W.CSC.PSA ---
[facility] Psychosocial Assessment Substance Use History Alcohol or Other Drug Used past 6 months Prior use? (lifetime) Route of Use Frequency (past 6 months) Duration (of use) Date of last use Alcohol Amphetamines (meth, ice, crank) Cocaine Heroin Opioid /Opiates (misuse or w/out prescription) Marijuana (cbd, dabs) Sedatives (Benzo, sleep meds) (misuse or w/out prescription) Hallucinogens Inhalants Over the Counter (Cough syrup, Diet) Nicotine (cigarettes, chew, vape) Other
[2022-09-06 14:00] VITALS: BP 156/88; PULSE 87; RESP 17; TEMP 36.7; O2SAT 99
--- NOTE | 2022-09-06 14:44 | P.NPUPN_ITS ---
Subjective NPU Subjective: Patient presented today feeling fairly upset about being in the hospital. Pacing back and forth and stopping and every person she passed giving them some measure of advice. She refused to go to her hearing but then when this inspector automatic typewriter returned and she was advised that she was placed on a 21-day hold, was requested to see the outside plant engineer. We discussed the risks, benefits and alternatives of the medications recommended. We advised her that given her previous success with Abilify, we would start the oral and the Abilify Maintena 400 mg IM. At that point she went on a tirade yelling about all the fat, black body parts of this inspector automatic typewriter. Mental Status Exam MSE Comments: This is an overweight [place] woman in hospital scrubs with adequate grooming and eye contact. No abnormal movements except for significant psychomotor agitation. Cooperative with exam in moderate to extreme distress. Speech was pressured with increased rate and volume with strong [place] accent suggesting that is her first language. Mood described as this inspector automatic typewriter is going to kill her, affect is elevated and frenetic. Thought process, organized but with flight of ideas and with tangentiality. Thought content: patient denies suicidal or homicidal ideation, no delusions reported but significant grandiosity noted as well as some paranoid and persecutory delusions, and she denied auditory or visual hallucinations. Attention and concentration are mostly intact and memory appeared unreliable though none were formally tested. She is alert and oriented to person, place and time but not purpose. Insight and judgment are impaired. Impulse control is impaired. Vitals/I&O/Wt Last Vital Signs Temp 98.1 F 09/06/22 14:00 Pulse 87 09/06/22 14:00 Resp 17 09/06/22 14:00 BP 156/88 09/06/22 14:00 Pulse Ox 99 09/06/22 14:00 O2 Del Method 09/06/22 06:00 Data NPU : 08/28/22 Unknown 08/28/22 Unknown A&P Assessment and plan (1) Juanita: (2) Psychosis: Plan This is a 52 year old [place] born woman with a possible history of juanita/bipolar disorder in the past who presents appearing manic and off of medication but not believing she needs any assistance, believing that the ones who brought her here are the ones who need help. 1. Continue current medications. Start Abilify 10 mg p.o. every morning with likely titration to 15 mg in a few days. Administer Abilify Maintena 400 mg IM 2. Encourage individual, group and milieu therapy 3. Continue q-15 minute check for safety 4. 21-day hold granted with final day of 21-day hold 09/27/2022. Involuntary Hold Information 96 Hour Hold: 96 Hour Involuntary Admission: Yes 96 Hour Hold Ending Date: 09/04/22 96 Hour Hold Ending Time: 22:25 Attestations NPU Medical Necessity Statement*: Inpatient hospitalization is medically necessary and the clinically appropriate intervention at this time. We will monitor medications and make changes as indicated. Likely length of stay is 7-10 days. Coding Level of Care Code Acute Body Presser for Ever Rose Diagnoses Juanita F30.9 Psychosis F29
[2022-09-06] MEDS: diphenhydrAMINE 50 mg/mL SDV 1mL IM (16:00)
[2022-09-06] MEDS: haloperidol inj 5 mg/mL INJ 1 mL IM (16:00)
[2022-09-06] MEDS: LORazepam 2 mg/mL INJ 1 mL IM (16:00)
[2022-09-06] MEDS: ARIPiprazole 10 mg Tablet PO (18:33)
[2022-09-06] MEDS: ARIPiprazole Maintena 400 MG IM (18:34)
--- NOTE | 2022-09-07 10:11 | P.NPUPN_ITS ---
Subjective NPU Subjective: Patient presents today seeming to have had a significant impact on the medications yesterday. She was calmer but also more isolative and not hyper or kinetic. She denies any issues it is reported she was resting. Denies any side effects of the medications. Mental Status Exam MSE Comments: This is an overweight woman in hospital scrubs with adequate grooming and eye contact. No abnormal movements except for significant psychomotor retardation. Cooperative with exam in no acute distress. Speech was decreased rate and volume. Mood described as a little tired, affect is congruent. Thought process, organized, thought content: patient denies suicidal or homicidal ideation, no delusions reported or noted and she denied auditory or visual hallucinations. Attention and concentration are mostly intact and memory appeared unreliable though none were formally tested. She is alert and oriented to person, place and time but not purpose. Insight and judgment are impaired. Impulse control is impaired. Vitals/I&O/Wt Last Vital Signs Temp 98.1 F 09/06/22 14:00 Pulse 87 09/06/22 14:00 Resp 17 09/06/22 14:00 BP 156/88 09/06/22 14:00 Pulse Ox 99 09/06/22 14:00 O2 Del Method 09/06/22 06:00 Data NPU : 08/28/22 Unknown 08/28/22 Unknown A&P Assessment and plan (1) Juanita: (2) Psychosis: Plan This is a 52 year old born woman with a possible history of juanita/bipolar disorder in the past who presents appearing manic and off of medication but not believing she needs any assistance, believing that the ones who brought her here are the ones who need help. 1. Continue current medications. Started Abilify 10 mg p.o. every morning with likely titration to 15 mg in a few days. Administer Abilify Maintena 400 mg IM 2. Encourage individual, group and milieu therapy 3. Continue q-15 minute check for safety 4. 21-day hold granted with final day of 21-day hold 09/27/2022. Involuntary Hold Information 96 Hour Hold: 96 Hour Involuntary Admission: Yes 96 Hour Hold Ending Date: 09/04/22 96 Hour Hold Ending Time: 22:25 Attestations NPU Medical Necessity Statement*: Inpatient hospitalization is medically necessary and the clinically appropriate intervention at this time. We will monitor medications and make changes as indicated. Likely length of stay is 6-9 days. Coding Level of Care Code Acute Healthcare Technician for g Fwd Diagnoses Juanita F30.9 Psychosis F29
[2022-09-07] MEDS: ARIPiprazole 10 mg Tablet PO (11:03)
[2022-09-07 14:00] VITALS: BP 126/79; PULSE 94; RESP 18; TEMP 36.9; O2SAT 97
[2022-09-07 20:01] VITALS: BP 143/90; PULSE 91; RESP 17; TEMP 36.3; O2SAT 97
[2022-09-08 06:00] VITALS: RESP 17
[2022-09-08] MEDS: ARIPiprazole 10 mg Tablet PO (11:03)
[2022-09-08 14:00] VITALS: BP 147/63; PULSE 89; RESP 18; TEMP 36.2; O2SAT 96
--- NOTE | 2022-09-08 17:08 | P.NPUPN_ITS ---
Subjective NPU Subjective: Patient presents today reporting that she feels the medication she received is what made her feel sick. She did have emesis this morning and we discussed the fact that that is not a reaction that we see to Abilify. And that she is probably just having some kind of stomach problem. Otherwise reports that she feels her energy is a taken from her and she normally active and now she has been laying around for a couple days. We discussed the medication was intended to treat her juanita and that we hope she will adjust to it as he had previously in [place]. Mental Status Exam MSE Comments: This is an overweight [place] woman in hospital scrubs with adequate grooming and eye contact. No abnormal movements except for significant psychomotor retardation. Cooperative with exam in mild distress. Speech was decreased rate and volume. Mood described as tired and a little sick, affect is congruent. Thought process, organized, thought content: patient denies suicidal or homicidal ideation, no delusions reported or noted and she denied auditory or visual hallucinations. Attention and concentration are mostly intact and memory appeared unreliable though none were formally tested. She is alert and oriented to person, place and time but not purpose. Insight and judgment are impaired. Impulse control is impaired. Vitals/I&O/Wt Last Vital Signs Temp 97.2 F L 09/08/22 14:00 Pulse 89 09/08/22 14:00 Resp 18 09/08/22 14:00 BP 147/63 09/08/22 14:00 Pulse Ox 96 09/08/22 14:00 O2 Del Method 09/08/22 14:00 Data NPU : 08/28/22 Unknown 08/28/22 Unknown A&P Assessment and plan (1) Juanita: (2) Psychosis: Plan This is a 52 year old [place] born woman with a possible history of juanita/bipolar disorder in the past who presents appearing manic and off of medication but not believing she needs any assistance, believing that the ones who brought her here are the ones who need help. 1. Continue current medications. Started Abilify 10 mg p.o. every morning with likely titration to 15 mg in a few days. Administered Abilify Maintena 400 mg IM 09/06/22. 2. Encourage individual, group and milieu therapy 3. Continue q-15 minute check for safety 4. 21-day hold granted with final day of 21-day hold 09/27/2022. Involuntary Hold Information 96 Hour Hold: 96 Hour Involuntary Admission: Yes 96 Hour Hold Ending Date: 09/04/22 96 Hour Hold Ending Time: 22:25 Attestations NPU Medical Necessity Statement*: Inpatient hospitalization is medically necessary and the clinically appropriate intervention at this time. We will monitor medications and make changes as indicated. Likely length of stay is 6-9 days. Coding Level of Care Code Acute Poultry Slaughterer for g Fwd Diagnoses Juanita F30.9 Psychosis F29
[2022-09-08 19:48] VITALS: BP 132/83; PULSE 100; RESP 18; TEMP 36.3; O2SAT 94
[2022-09-09 06:00] VITALS: RESP 18
--- NOTE | 2022-09-09 08:27 | W.PM.NPUPNS ---
Subjective NPU Subjective: Patient presents today continuing to be saddened by the extraction of her energy reporting that she was getting things done and being active now since the injection she does not feel her energy is there. We discussed her ultimately adjusting to the medication and that she should feel her energy normalize. Otherwise she is willing to talk to this junior technical writer. We discussed the fact that on Sunday Dr. Walker will be covering and will be making independent decisions and he may possibly see the circumstance differently. Mental Status Exam MSE Comments: This is an overweight [place] woman in hospital scrubs with adequate grooming and eye contact. No abnormal movements except for psychomotor retardation. Cooperative with exam in mild distress. Speech was decreased rate and volume. Mood described as tired, affect is congruent. Thought process, organized, thought content: patient denies suicidal or homicidal ideation, no delusions reported or noted and she denied auditory or visual hallucinations. Attention and concentration are mostly intact and memory appeared unreliable though none were formally tested. She is alert and oriented to person, place and time but not purpose. Insight and judgment are impaired. Impulse control is impaired. Vitals/I&O/Wt Last Vital Signs Temp 97.3 F L 09/08/22 19:48 Pulse 100 09/08/22 19:48 Resp 18 09/09/22 06:00 BP 132/83 09/08/22 19:48 Pulse Ox 94 09/08/22 19:48 O2 Del Method 09/08/22 14:00 Data NPU : 08/28/22 Unknown 08/28/22 Unknown A&P Assessment and plan (1) Juanita: (2) Psychosis: Plan This is a 52 year old Romanian born woman with a possible history of juanita/bipolar disorder in the past who presents appearing manic and off of medication but not believing she needs any assistance, believing that the ones who brought her here are the ones who need help. 1. Continue current medications. Started Abilify 10 mg p.o. every morning with likely titration to 15 mg in a few days. Administered Abilify Maintena 400 mg IM 09/06/22. 2. Encourage individual, group and milieu therapy 3. Continue q-15 minute check for safety 4. 21-day hold granted with final day of 21-day hold 09/27/2022. Involuntary Hold Information 96 Hour Hold: 96 Hour Involuntary Admission: Yes 96 Hour Hold Ending Date: 09/04/22 96 Hour Hold Ending Time: 22:25 Attestations NPU Medical Necessity Statement*: Inpatient hospitalization is medically necessary and the clinically appropriate intervention at this time. We will monitor medications and make changes as indicated. Likely length of stay is 6-9 days. Coding Level of Care Code Acute Aircraft Dispatcher for Chg Fwd Diagnoses Ujanita F30.9 Psychosis F29
[2022-09-09] MEDS: ARIPiprazole 10 mg Tablet PO (09:22)
[2022-09-09 14:00] VITALS: BP 135/86; PULSE 83; RESP 18; TEMP 36.8; O2SAT 95
[2022-09-09 20:22] VITALS: BP 152/92; PULSE 85; RESP 12; TEMP 37.2; O2SAT 95
[2022-09-10 06:00] VITALS: BP 133/83; PULSE 77; RESP 18; TEMP 36.5; O2SAT 95
--- NOTE | 2022-09-10 08:40 | P.NPUPN_ITS ---
Subjective NPU Subjective: Patient presents today reporting that things are going okay. She continues to report feeling somewhat sick but has not appeared sick since a couple days ago. She reports no other side effects she attributes to the medication. Continues to be more isolative and does still report a desire to be discharged as soon as possible. We discussed the fact that her Aaron would be here tomorrow and reevaluate the situation but agreed that her current presentation suggests that the juanita is resolving or at least getting better. Mental Status Exam MSE Comments: This is an overweight Tuval[place] woman in hospital scrubs with adequate grooming and eye contact. No abnormal movements except for psychomotor retardation. Cooperative with exam in mild distress. Speech was decreased rate and volume. Mood described as tired, affect is congruent. Thought process, organized, thought content: patient denies suicidal or homicidal ideation, no delusions reported or noted and she denied auditory or visual hallucinations. Attention and concentration are mostly intact and memory appeared unreliable though none were formally tested. She is alert and oriented to person, place and time but not purpose. Insight and judgment are impaired. Impulse control is impaired. Vitals/I&O/Wt Last Vital Signs Temp 98.9 F 09/09/22 20: Pulse 85 09/09/22 20:22 Resp 12 09/09/22 20:22 BP 152/92 09/09/22 20:22 Pulse Ox 95 09/09/22 20:22 O2 Del Method 09/08/22 14:00 Weight last 48 hrs Weight 82.282 kg Data NPU : 08/28/22 Unknown 08/28/22 Unknown A&P Assessment and plan (1) Juanita: (2) Psychosis: Plan This is a 52 year old [place] born woman with a possible history of juanita/bipolar disorder in the past who presents appearing manic and off of medication but not believing she needs any assistance, believing that the ones who brought her here are the ones who need help. 1. Continue current medications. Started Abilify 10 mg p.o. every morning with likely titration to 15 mg in a few days. Administered Abilify Maintena 400 mg IM 09/06/22. 2. Encourage individual, group and milieu therapy 3. Continue q-15 minute check for safety 4. 21-day hold granted with final day of 21-day hold 09/27/2022. Involuntary Hold Information 96 Hour Hold: 96 Hour Involuntary Admission: Yes 96 Hour Hold Ending Date: 09/04/22 96 Hour Hold Ending Time: 22:25 Attestations NPU Medical Necessity Statement*: Inpatient hospitalization is medically necessary and the clinically appropriate intervention at this time. We will monitor medications and make changes as indicated. Likely length of stay is 5-8 days. Coding Level of Care Code Acute Occupational Therapy Professor for g Fwd Diagnoses Juanita F30.9 Psychosis F29
[2022-09-10] MEDS: ARIPiprazole 10 mg Tablet PO (09:38)
[2022-09-10 13:29] VITALS: BP 125/76; PULSE 70; RESP 16; TEMP 36.6; O2SAT 97
[2022-09-10 20:56] VITALS: BP 134/81; PULSE 88; RESP 14; TEMP 36.7; O2SAT 97
[2022-09-10 22:00] VITALS: BP 134/81; PULSE 88; RESP 14; TEMP 36.7; O2SAT 97
[2022-09-11 06:00] VITALS: BP 112/72; PULSE 63; RESP 17; TEMP 36.4; O2SAT 95
[2022-09-11] MEDS: ARIPiprazole 10 mg Tablet PO (10:12)
[2022-09-11 14:00] VITALS: BP 130/85; PULSE 90; RESP 18; TEMP 36.5; O2SAT 95
--- NOTE | 2022-09-11 17:19 | P.NPUPN_ITS ---
Subjective NPU Subjective: 52-year-old Burkinan female with a history of's manic symptoms and psychotic symptoms who continues to show evidence of juanita and paranoid delusions on the unit. She had reported an extensive history of having been persecuted and reports that she has been at a constant struggle with managing he r family while others that were not specifically named had been plotting against her. She had been attending groups and had continued to show evidence of clear overvalued ideas. She reported no side effects from her medication. Mental Status Exam MSE Comments: This is an overweight Burkinan woman in hospital scrubs with adequate grooming and eye contact. No abnormal movements except for psychomotor retardation. Cooperative with exam in mild distress. Speech was normal in rate, rhythm and prosody. Mood described as okay. Her affect appeared expansive. Thought process, organized, thought content: patient denies suicidal or homicidal ideation, clear delusional thinking noted, overvalued ideas, and paranoia. Attention and concentration are mostly intact and memory appeared unreliable though none were formally tested. She is alert and oriented to person, place and time but not purpose. Insight and judgment are impaired. Impulse control is impaired. Vitals/I&O/Wt Last Vital Signs Temp 97.7 F 09/11/22 14:00 Pulse 90 09/11/22 14:00 Resp 18 09/11/22 14:00 BP 130/85 09/11/22 14:00 Pulse Ox 95 09/11/22 14:00 O2 Del Method 09/11/22 06:00 Weight last 48 hrs Weight 82.282 kg Data NPU : 08/28/22 Unknown 08/28/22 Unknown A&P Assessment and plan (1) Juanita: (2) Psychosis: Plan This is a 52 year old Burkinan born woman with a possible history of juanita/bipolar disorder in the past who presents appearing manic and off of medication but not believing she needs any assistance, believing that the ones who brought her here are the ones who need help. 1. Continue current medications. Increase abilify to 15mg daily. Administered Abilify Maintena 400 mg IM 09/06/22. 2. Encourage individual, group and milieu therapy 3. Continue q-15 minute check for safety 4. 21-day hold granted with final day of 21-day hold 09/27/2022. Involuntary Hold Information 96 Hour Hold: 96 Hour Involuntary Admission: Yes 96 Hour Hold Ending Date: 09/04/22 96 Hour Hold Ending Time: 22:25 Attestations NPU Medical Necessity Statement*: Inpatient hospitalization is medically necessary and the clinically appropriate intervention at this time. We will monitor medications and make changes as indicated. Likely length of stay is 5-8 days. Coding Level of Care Code Established Pt Acute Medical Record Retrieval Specialist for Chg Fwd Patient Type Established History Problem Focused Exam Problem Focused Medical Decision Making Straight Forward Diagnoses Juanita F30.9 Psychosis F29
[2022-09-11 22:00] VITALS: BP 126/85; PULSE 91; RESP 16; TEMP 36.5; O2SAT 94
[2022-09-12 06:00] VITALS: BP 128/84; PULSE 77; RESP 14; TEMP 36.4; O2SAT 96
[2022-09-12] MEDS: ARIPiprazole 10 mg Tablet 15 MG PO (09:05)
[2022-09-12 14:00] VITALS: BP 131/84; PULSE 86; RESP 16; TEMP 36.2; O2SAT 98
--- NOTE | 2022-09-12 16:03 | P.NPUPN_ITS ---
Subjective NPU Subjective: 52-year-old [place] female with a history of manic symptoms and psychotic symptoms admitted with disorganized thinking, decrease need for sleep and overt psychosis. The patient had been sleeping better. She reported that she wishes to go home. Staff notes the patient has been less driven and less grandiose in milieu and has been redirectable. There has been no agitation or aggression noted. She reported that she was having relatives visited her. She continued to endorse that people in [place] had sorted her ability to make a living and were attempting to undermine her. She had reported that her thoughts had seemed clear. She had reported that she understands how it works and that she would play the game . Mental Status Exam 2 MSE Comments: This is an overweight [place] woman in hospital scrubs with adequate grooming and eye contact. There is no evidence of any abnormal involuntary motor movements tics or tremors.She was cooperative with exam in mild distress. Speech was normal in rate, rhythm and prosody. Mood described as good. Her affect remained expansive and irritable. Thought process was linear and organized. , thought content: patient denies suicidal or homicidal ideation, clear delusional thinking noted, overvalued ideas, and paranoia noted. Attention and concentration are mostly intact and memory appeared unreliable though none were formally tested. She is alert and oriented to person, place and time but not purpose. Insight and judgment are impaired. Impulse control is impaired. Vitals/I&O/Wt Last Vital Signs Temp 97.5 F L 09/12/22 06:00 Pulse 77 09/12/22 06:00 Resp 14 09/12/22 06:00 BP 128/84 09/12/22 06:00 Pulse Ox 96 09/12/22 06:00 O2 Del Method 09/12/22 06:00 Data NPU : 08/28/22 Unknown 08/28/22 Unknown A&P Assessment and plan (1) Juanita: (2) Psychosis: Plan This is a 52 year old [place] born woman with a possible history of juanita/bipolar disorder in the past who presents appearing manic and off of medication but not believing she needs any assistance, believing that the ones who brought her here are the ones who need help. 1. Continue current medications. Continue abilify at 15mg daily. Administered Abilify Maintena 400 mg IM 09/06/22. 2. Encourage individual, group and milieu therapy 3. Continue q-15 minute check for safety 4. 21-day hold granted with final day of 21-day hold 09/27/2022. Involuntary Hold Information 96 Hour Hold: 96 Hour Involuntary Admission: Yes 96 Hour Hold Ending Date: 09/04/22 96 Hour Hold Ending Time: 22:25 Attestations NPU Medical Necessity Statement*: Inpatient hospitalization is medically necessary and the clinically appropriate intervention at this time. We will monitor medications and make changes as indicated. Her Likely length of stay is 7-10 days, she continues to show slight improvment. Coding Level of Care Code Established Pt Acute Spool Cleaner Hand for Estephanieg Fwd Patient Type Established History Problem Focused Exam Problem Focused Medical Decision Making Straight Forward Diagnoses Juanita F30.9 Psychosis F29
[2022-09-12 19:31] VITALS: BP 129/85; PULSE 88; RESP 16; TEMP 36.8; O2SAT 97
[2022-09-13 06:00] VITALS: BP 105/71; PULSE 75; RESP 16; TEMP 36.5; O2SAT 98
[2022-09-13] MEDS: ARIPiprazole 10 mg Tablet 15 MG PO (09:30)
--- NOTE | 2022-09-13 09:53 | P.NPUPN_ITS ---
Subjective NPU Subjective: 52-year-old Turkmen female with a history of manic symptoms and psychotic symptoms admitted with disorganized thinking, decrease need for sleep and overt psychosis. The patient appeared agitated and stated that she simply wanted to be free and moved back to [place]. She reported that she did not think that she had any problems and reported that she did not wish to have any involvement with her family. She reports that she plans to go to [place] and reside with her friend who she describes as family Ms. Dexter. She reported no depression. She reports that she has been simply misunderstood and that her role here is part of a larger clot against her and that she remains hopeful that she can be released from here. She had reported an extended history of noncompliance with her medication treatment and described having numerous family members who felt that she had a problem. Despite this, Monique reports being the happiest person you will ever meet. Mental Status Exam MSE Comments: This is an overweight Turkmen woman in hospital scrubs with adequate grooming and eye contact. There is no evidence of any abnormal involuntary motor movements tics or tremors.She was cooperative with exam in mild distress. Speech was increased in rate, rhythm and prosody. Mood described as good. Her affect remained expansive and more irritable. Thought process was circumstantial and less organized today , thought content: patient denies suicidal or homicidal ideation, clear delusional thinking noted, overvalued ideas, and paranoia noted. Attention and concentration are mostly intact and memory appeared unreliable though none were formally tested. She is alert and oriented to person, place and time but not purpose. Insight and judgment are impaired. Impulse control is impaired. Vitals/I&O/Wt Last Vital Signs Temp 97.7 F 09/13/22 06:00 Pulse 75 09/13/22 06:00 Resp 16 09/13/22 06:00 BP 105/71 09/13/22 06:00 Pulse Ox 98 09/13/22 06:00 O2 Del Method 09/12/22 06:00 Data NPU : 08/28/22 Unknown 08/28/22 Unknown A&P Assessment and plan (1) Keena: (2) Psychosis: Plan This is a 52 year old Turkmen born woman with a possible history of keena/bipolar disorder in the past who presents appearing manic and off of medication but not believing she needs any assistance, believing that the ones who brought her here are the ones who need help. 1. Continue current medications. Continue abilify at 15mg daily with likely increase in 2-3 days. Administered Abilify Maintena 400 mg IM 09/06/22. 2. Encourage individual, group and milieu therapy 3. Continue q-15 minute check for safety 4. 21-day hold granted with final day of 21-day hold 09/27/2022. Involuntary Hold Information 96 Hour Hold: 96 Hour Involuntary Admission: Yes 96 Hour Hold Ending Date: 09/04/22 96 Hour Hold Ending Time: 22:25 Attestations NPU Medical Necessity Statement*: Inpatient hospitalization is medically necessary and the clinically appropriate intervention at this time. We will monitor medications and make changes as indicated. Her Likely length of stay is 7-10 days, she continues to show slight improvment. Coding Level of Care Code Established Pt Acute Garnett Machine Operator Helper for Ever Rose Patient Type Established History Problem Focused Exam Problem Focused Medical Decision Making Straight Forward Diagnoses Keena F30.9 Psychosis F29
[2022-09-13 14:00] VITALS: BP 153/94; PULSE 87; RESP 20; TEMP 36.3; O2SAT 98
[2022-09-13 22:00] VITALS: BP 136/75; PULSE 74; RESP 18; TEMP 36.7; O2SAT 98
[2022-09-14 06:00] VITALS: BP 128/76; PULSE 65; RESP 18; TEMP 36.5; O2SAT 98
[2022-09-14] MEDS: ARIPiprazole 10 mg Tablet 15 MG PO (08:31)
[2022-09-14 14:00] VITALS: BP 151/96; PULSE 89; RESP 16; TEMP 36.8; O2SAT 95
--- NOTE | 2022-09-14 20:17 | P.NPUPN_ITS ---
Subjective NPU Subjective: 52-year-old Wallisian female with a history of manic symptoms and psychotic symptoms admitted with disorganized thinking, decrease need for sleep and overt psychosis. Patient continued to be somewhat brooding on the milieu repeatedly asking to speak with the senior medical writer of this note. 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 She reports that she wishes to live with her friend in [place] when she is discharged. She had reported that she did not wish to be in this residential any longer. She had reported adequate sleep and reported no side effects to her medication. She continued to be redirectable on the unit and did appear to be attending groups. She had been seen singing very loudly on the unit. Mental Status Exam MSE Comments: This is an overweight Wallisian woman in hospital scrubs with adequate grooming and eye contact. There is no evidence of any abnormal involuntary motor movements tics or tremors.She was cooperative with exam in mild distress. Speech was increased in rate, rhythm and prosody. Mood described as okay. Her affect remained expansive and irritable. Thought process was circumstantial and less organized today , thought content: patient denies suicidal or homicidal ideation, clear delusional thinking noted, overvalued i capri, and paranoia noted. Attention and concentration are mostly intact and memory appeared unreliable though none were formally tested. She is alert and oriented to person, place and time but not purpose. Insight and judgment are impaired. Impulse control is impaired. Vitals/I&O/Wt Last Vital Signs Temp 98.2 F 09/14/22 14:00 Pulse 89 09/14/22 14:00 Resp 16 09/14/22 14:00 BP 151/96 09/14/22 14:00 Pulse Ox 95 09/14/22 14:00 O2 Del Method 09/14/22 06:00 Data NPU : 08/28/22 Unknown 08/28/22 Unknown A&P Assessment and plan (1) Juanita: (2) Psychosis: Plan This is a 52 year old Wallisian born woman with a possible history of juanita/bipolar disorder in the past who presents appearing manic and off of medication but not believing she needs any assistance, believing that the ones who brought her here are the ones who need help. 1. Continue current medications. Continue abilify at 15mg daily with likely increase in 2-3 days. Administered Abilify Maintena 400 mg IM 09/06/22. 2. Encourage individual, group and milieu therapy 3. Continue q-15 minute check for safety 4. 21-day hold granted with final day of 21-day hold 09/27/2022. Involuntary Hold Information 96 Hour Hold: 96 Hour Involuntary Admission: Yes 96 Hour Hold Ending Date: 09/04/22 96 Hour Hold Ending Time: 22:25 Attestations NPU Medical Necessity Statement*: Inpatient hospitalization is medically necessary and the clinically appropriate intervention at this time. We will monitor medications and make changes as indicated. Her Likely length of stay is 7-10 days, she continues to show slight improvment. Coding Level of Care Code Established Pt Acute Pole Peeler for Ever Rose Patient Type Established History Problem Focused Exam Problem Focused Medical Decision Making Straight Forward Diagnoses Juanita F30.9 Psychosis F29
[2022-09-15 06:00] VITALS: BP 115/79; PULSE 69; RESP 16; TEMP 36.6; O2SAT 97
[2022-09-15] MEDS: ARIPiprazole 10 mg Tablet 15 MG PO (08:42)
[2022-09-15 14:00] VITALS: BP 132/89; PULSE 91; RESP 20; TEMP 36.6; O2SAT 97
--- NOTE | 2022-09-15 17:18 | W.PM.NPUPNS ---
Subjective NPU Subjective: 52-year-old [place] female with a history of manic symptoms and psychotic symptoms admitted with disorganized thinking, decrease need for sleep and overt psychosis. Patient continues to show evidence of active psychosis and significant periods of grandiosity although she has been sleeping better and has been more focused in meetings and in individual visits. She had tolerated visits from her family this week. She continues to remain uncertain regarding where she will go but acknowledges that she will go somewhere with her family when she is discharged. 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 She had been eating well and states that she has been here long enough and wishes to return home. She reports no racing thoughts at this time. Mental Status Exam MSE Comments: This is an overweight [place] woman in hospital scrubs with adequate grooming and eye contact. There is no evidence of any abnormal involuntary motor movements tics or tremors. She was cooperative with exam in mild distress. Speech was increased in rate, rhythm and prosody. Mood described as better. Her affect appeared expansive but noticably more mellow. Thought process was circumstantial and more organized today , thought content: patient denies suicidal or homicidal ideation, clear delusional thinking noted, overvalued ideas, and paranoia noted. Attention and concentration are mostly intact. Her memory appeared unreliable though none were formally tested. She is alert and oriented to person, place and time but not purpose. Insight and judgment are impaired. Impulse control is impaired. Vitals/I&O/Wt Last Vital Signs Temp 98 F 09/15/22 14:00 Pulse 91 09/15/22 14:00 Resp 20 H 09/15/22 14:00 BP 132/89 09/15/22 14:00 Pulse Ox 97 09/15/22 14:00 O2 Del Method 09/15/22 06:00 Data NPU : 08/28/22 Unknown 08/28/22 Unknown A&P Assessment and plan (1) Juanita: (2) Psychosis: Plan This is a 52 year old [place] born woman with a possible history of juanita/bipolar disorder in the past who presents appearing manic and off of medication but not believing she needs any assistance, believing that the ones who brought her here are the ones who need help. 1. Continue current medications. Continue abilify with increase to 20mg in am. Administered Abilify Maintena 400 mg IM 09/06/22. 2. Encourage individual, group and milieu therapy 3. Continue q-15 minute check for safety 4. 21-day hold granted with final day of 21-day hold 09/27/2022. Involuntary Hold Information 96 Hour Hold: 96 Hour Involuntary Admission: Yes 96 Hour Hold Ending Date: 09/04/22 96 Hour Hold Ending Time: 22:25 Attestations NPU Medical Necessity Statement*: Inpatient hospitalization is medically necessary and the clinically appropriate intervention at this time. We will monitor medications and make changes as indicated. Her likely length of stay is 3-5 days, she continues to show slight improvement. Coding Level of Care Code Established Pt Acute Copper Miner Blasting for Estephaineg Fwd Patient Type Established History Problem Focused Exam Problem Focused Medical Decision Making Straight Forward Diagnoses Juanita F30.9 Psychosis F29
[2022-09-15 20:07] VITALS: BP 122/79; PULSE 79; RESP 16; TEMP 36.6; O2SAT 97
[2022-09-16 06:00] VITALS: BP 119/77; PULSE 63; RESP 17; TEMP 36.4; O2SAT 96
[2022-09-16] MEDS: ARIPiprazole 10 mg Tablet 20 MG PO (09:50)
[2022-09-16 13:35] VITALS: BP 108/76; PULSE 83; RESP 15; TEMP 36.6; O2SAT 96
--- NOTE | 2022-09-16 13:49 | W.PM.NPUPNS ---
Subjective NPU Subjective: 52-year-old Turkish female with a history of manic symptoms and psychotic symptoms admitted with disorganized thinking, decrease need for sleep and overt psychosis. She minimized any racing thoughts at this time. She reports that she has been concentrating adequately. She continued to spend time in groups and on the milieu focusing on her skills. She continued her report ambivalence about where she would live. She states having a visit from her son and stated that she may return to [place] if she chooses. 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 Mental Status Exam MSE Comments: This is an overweight Turkish woman in hospital scrubs with adequate grooming and eye contact. There is no evidence of any abnormal involuntary motor movements tics or tremors. She was cooperative with exam in mild distress. Speech was increased in rate, with normal rhythm and normal prosody. Her mood described as good. Her affect appeared more subdued today. Thought process was circumstantial and more organized today , thought content: patient denies suicidal or homicidal ideation, clear delusional thinking noted, overvalued ideas, and paranoia noted. Attention and concentration are mostly intact. Her memory appeared unreliable though none were formally tested. She is alert and oriented to person, place and time but not purpose. Insight and judgment are impaired. Impulse control is impaired. Vitals/I&O/Wt Last Vital Signs Temp 97.9 F 09/16/22 13:35 Pulse 83 09/16/22 13:35 Resp 15 09/16/22 13:35 BP 108/76 09/16/22 13:35 Pulse Ox 96 09/16/22 13:35 O2 Del Method 09/15/22 06:00 Data NPU : 08/28/22 Unknown 08/28/22 Unknown A&P Assessment and plan (1) Juanita: (2) Psychosis: Plan This is a 52 year old Turkish born woman with a possible history of juanita/bipolar disorder in the past who presents appearing manic and off of medication but not believing she needs any assistance, believing that the ones who brought her here are the ones who need help. 1. Continue current medications. Continue abilify at 20mg in am. Administered Abilify Maintena 400 mg IM 09/06/22. 2. Encourage individual, group and milieu therapy 3. Continue q-15 minute check for safety 4. 21-day hold granted with final day of 21-day hold 09/27/2022. Involuntary Hold Information 96 Hour Hold: 96 Hour Involuntary Admission: Yes 96 Hour Hold Ending Date: 09/04/22 96 Hour Hold Ending Time: 22:25 Attestations NPU Medical Necessity Statement*: Inpatient hospitalization is medically necessary and the clinically appropriate intervention at this time. We will monitor medications and make changes as indicated. Her likely length of stay is 3-5 days, she continues to show improvement with antipsychotic medication. Coding Level of Care Code Established Pt Acute [place] Weapon System Operator for [facility] Patient Type Established History Problem Focused Exam Problem Focused Medical Decision Making Straight Forward Diagnoses Juanita F30.9 Psychosis F29
[2022-09-16 20:06] VITALS: BP 122/78; PULSE 80; RESP 17; TEMP 36.7; O2SAT 97
[2022-09-17 06:00] VITALS: BP 114/74; PULSE 68; RESP 17; TEMP 36.4; O2SAT 99
[2022-09-17] MEDS: ARIPiprazole 10 mg Tablet 20 MG PO (08:53)
[2022-09-17 14:00] VITALS: BP 153/94; PULSE 105; RESP 17; TEMP 36.6; O2SAT 100
--- NOTE | 2022-09-17 14:23 | W.PM.NPUPNS ---
Subjective NPU Subjective: 52-year-old Russian female with a history of manic symptoms and psychotic symptoms admitted with disorganized thinking, decrease need for sleep and overt psychosis. The patient appeared calmer on the milieu. She reported that she was feeling better and felt like she would be able to go home with her family soon. She reported being uncertain as to where she was going but states that she would take her medications. She reported no depression at this time. She reported that she was an extremely happy person . She had been sleeping without issue. She denied any racing thoughts. Mental Status Exam MSE Comments: This is an overweight Russian woman in hospital scrubs with adequate grooming and eye contact. There is no evidence of any abnormal involuntary motor movements tics or tremors. She was pleasant and cooperative on interview. Speech was normal in regards to rate rhythm and prosody. Her mood described as good. Her affect appeared brighter. Thought process was more linear and more organized today. Thought content: patient denies suicidal or homicidal ideation, there was less grandiosity noted with no clear evidence of overvalued ideas. Her attention and concentration are mostly intact. Her memory appeared unreliable though none were formally tested. She is alert and oriented to person, place and time but not purpose. Insight and judgment are impaired. Impulse control is impaired. Vitals/I&O/Wt Last Vital Signs Temp 97.6 F 09/17/22 06:00 Pulse 68 09/17/22 06:00 Resp 17 09/17/22 06:00 BP 114/74 09/17/22 06:00 Pulse Ox 99 09/17/22 06:00 O2 Del Method 09/15/22 06:00 Weight last 48 hrs Weight 82.917 kg Data NPU : 08/28/22 Unknown 08/28/22 Unknown A&P Assessment and plan (1) Juanita: (2) Psychosis: Plan This is a 52 year old Russian born woman with a possible history of juanita/bipolar disorder in the past who presents appearing manic and off of medication but not believing she needs any assistance, believing that the ones who brought her here are the ones who need help. 1. Continue current medications. Continue abilify at 20mg in am. Administered Abilify Maintena 400 mg IM 09/06/22. 2. Encourage individual, group and milieu therapy 3. Continue q-15 minute check for safety 4. 21-day hold granted with final day of 21-day hold 09/27/2022. Involuntary Hold Information 96 Hour Hold: 96 Hour Involuntary Admission: Yes 96 Hour Hold Ending Date: 09/04/22 96 Hour Hold Ending Time: 22:25 Attestations NPU Medical Necessity Statement*: Inpatient hospitalization is medically necessary and the clinically appropriate intervention at this time. We will monitor medications and make changes as indicated. Her likely length of stay is 3-5 days, she continues to show improvement with antipsychotic medication. 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
[2022-09-17 21:41] VITALS: BP 124/79; PULSE 83; RESP 18; TEMP 36.7; O2SAT 97
[2022-09-18 06:00] VITALS: BP 113/68; PULSE 63; RESP 16; TEMP 36.6; O2SAT 100
[2022-09-18] MEDS: ARIPiprazole 10 mg Tablet 20 MG PO (08:41)
[2022-09-18 14:00] VITALS: BP 165/76; PULSE 83; RESP 17; TEMP 36.6; O2SAT 97
--- NOTE | 2022-09-18 15:41 | P.NPUPN_ITS ---
Subjective NPU Subjective: 52-year-old female with a history of manic symptoms and psychotic symptoms admitted with disorganized thinking, decrease need for sleep and overt psychosis. Patient had appeared more grandiose on the unit as she was singing on the unit. She had reported some hope with being able to return to her family soon. Patient had continue to minimize much of what it happened in the hospital. She continued to report having specific chung and stated that she was unsure as to where she would go to upon discharge. Patient reported that she has had problems with her mood for several years but reported that she was always a happy person. Mental Status Exam MSE Comments: This is an overweight woman in hospital scrubs with adequate grooming and eye contact. There is no evidence of any abnormal involuntary motor movements tics or tremors. She was pleasant and cooperative on interview. Speech was normal in regards to rate rhythm and prosody. Her mood described as good. Her affect appeared labile and excessively euphoric. Thought process was more linear and more organized today. Thought content: patient denies suicidal or homicidal ideation, there was continued grandiosity noted and continued overvalued ideas appreciated. Her attention and concentration are mostly intact. Her memory appeared unreliable though none were formally tested. She is alert and oriented to person, place and time but not purpose. Insight and judgment are impaired. Impulse control is impaired. Vitals/I&O/Wt Last Vital Signs Temp 97.8 F 09/18/22 06:00 Pulse 63 09/18/22 06:00 Resp 16 09/18/22 06:00 BP 113/68 09/18/22 06:00 Pulse Ox 100 09/18/22 06:00 O2 Del Method 09/15/22 06:00 Weight last 48 hrs Weight 82.917 kg Data NPU : 08/28/22 Unknown 08/28/22 Unknown A&P Assessment and plan (1) Juanita: (2) Psychosis: Plan This is a 52 year old born woman with a possible history of juanita/bipolar disorder in the past who presents appearing manic and off of medication but not believing she needs any assistance, believing that the ones who brought her here are the ones who need help. 1. Continue current medications. Continue abilify at 20mg in am. Add Depakote ER 500mg in AM with likely titration to 1000mg in AM. Administered Abilify Maintena 400 mg IM 10/19/22. 2. Encourage individual, group and milieu therapy 3. Continue q-15 minute check for safety 4. 21-day hold granted with final day of 21-day hold 09/27/2022. Involuntary Hold Information 96 Hour Hold: 96 Hour Involuntary Admission: Yes 96 Hour Hold Ending Date: 09/04/22 96 Hour Hold Ending Time: 22:25 Attestations NPU Medical Necessity Statement*: Inpatient hospitalization is medically necessary and the clinically appropriate intervention at this time. We will monitor medications and make changes as indicated. Her likely length of stay is 5- 7days, she continues to show improvement with antipsychotic medication. Coding Level of Care Code Established Pt Acute Supervisor Policy Change Clerks for [facility] Patient Type Established History Problem Focused Exam Problem Focused Medical Decision Making Straight Forward Diagnoses Juanita F30.9 Psychosis F29
[2022-09-18] MEDS: divalproex ER 500 mg Tablet (24H) PO (16:05)
--- NOTE | 2022-09-18 16:22 | PC.NURSE ---
Patient Behavior Patient administered medication without any issues or complaints. However, shortly after she began speaking quickly and harshly about how I wasn't supposed to give her something the doctor didn't write and that she knew the computers had been hacked by someone else and they had written the prescription. Patient verbally redirected, but continued to talk about how everything was hacked and she was being used as a guinea pig.
[2022-09-18 20:20] VITALS: BP 132/75; PULSE 88; RESP 16; TEMP 36.9; O2SAT 97
[2022-09-19 06:00] VITALS: BP 125/78; PULSE 66; RESP 16; TEMP 36.6; O2SAT 97
[2022-09-19] MEDS: ARIPiprazole 10 mg Tablet 20 MG PO (08:32)
[2022-09-19] MEDS: divalproex ER 500 mg Tablet (24H) PO (08:32)
[2022-09-19 14:00] VITALS: BP 147/89; PULSE 110; RESP 18; TEMP 36.8; O2SAT 99
--- NOTE | 2022-09-19 17:01 | P.NPUPN_ITS ---
Subjective NPU Subjective: 52-year-old [place]an female with a history of manic symptoms and psychotic symptoms admitted with disorganized thinking, decrease need for sleep and overt psychosis. Patient appeared intrusive on the unit repeatedly asking to speak with me regarding specifics. She had reported that she wished to follow the instructions of her family and stated that she would take the Depakote that was started but reported that she did not feel that she needed to be here. She states that she was here simply for an exorcism and that she was here to get spirits out and she had somehow ended up in the hospital. She minimized any past history that had led to her being diagnosed with bipolar disorder. She states that she is a very smart functioning woman and she was simply misunderstood. She was redirectable on the unit and slept adequately per staff. Mental Status Exam MSE Comments: This is an overweight [place] woman in hospital scrubs with adequate grooming and eye contact. There is no evidence of any abnormal involuntary motor movements tics or tremors. She was intrusive and persistent throughout the interview. Speech was normal in regards to rate rhythm and prosody. Her mood described as great. Her affect appeared labile and excessively euphoric. Thought process was expansive. She was oddly singing loudly on the unit. Thought content: patient denies suicidal or homicidal ideation; There was continued grandiosity noted and continued overvalued ideas appreciated. Her attention and concentration are mostly intact. Her memory appeared unreliable though none were formally tested. She is alert and oriented to person, place and time but not purpose. Insight and judgment are impaired. Impulse control is impaired. Vitals/I&O/Wt Last Vital Signs Temp 97.8 F 09/19/22 06:00 Pulse 66 09/19/22 06:00 Resp 16 09/19/22 06:00 BP 125/78 09/19/22 06:00 Pulse Ox 97 09/19/22 06:00 O2 Del Method 09/15/22 06:00 Data NPU : 08/28/22 Unknown 08/28/22 Unknown A&P Assessment and plan (1) Juanita: (2) Psychosis: Plan This is a 52 year old [place]an born woman with a possible history of juanita/bipolar disorder in the past who presents appearing manic and off of medication but not believing she needs any assistance, believing that the ones who brought her here are the ones who need help. 1. Continue current medications. Continue abilify at 20mg in am. Increase Depakote extended release to 1000 mg in the morning. Administered Abilify Maintena 400 mg IM 09/06/22. 2. Encourage individual, group and milieu therapy 3. Continue q-15 minute check for safety 4. 21-day hold granted with final day of 21-day hold 09/27/2022. Involuntary Hold Information 96 Hour Hold: 96 Hour Involuntary Admission: Yes 96 Hour Hold Ending Date: 09/04/22 96 Hour Hold Ending Time: 22:25 Attestations NPU Medical Necessity Statement*: Inpatient hospitalization is medically necessary and the clinically appropriate intervention at this time. We will monitor medications and make changes as indicated. Her likely length of stay is 5- 7days, she continues to show improvement with antipsychotic medication but remains manic and addition of depakote ER is essential. 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
[2022-09-19 20:05] VITALS: BP 132/83; PULSE 98; RESP 16; TEMP 36.9; O2SAT 97
[2022-09-20 06:00] VITALS: BP 137/85; PULSE 76; RESP 16; TEMP 36.3; O2SAT 97
[2022-09-20] MEDS: divalproex ER 500 mg Tablet (24H) 1000 MG PO (08:27)
[2022-09-20] MEDS: ARIPiprazole 10 mg Tablet 20 MG PO (08:27)
[2022-09-20 14:00] VITALS: BP 143/86; PULSE 78; RESP 17; TEMP 36.3; O2SAT 99
--- NOTE | 2022-09-20 15:53 | P.NPUPN_ITS ---
Subjective NPU Subjective: 52-year-old Cuban female with a history of manic symptoms and psychotic symptoms admitted with disorganized thinking, decrease need for sleep and overt psychosis. Patient had complained of having diarrhea on the unit. She reports that it was due to the Depakote. She reports that the Depakote was originally meant to be 150 mg and was meant to be given through the rectum. 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 Patient continued to be somewhat intrusive on the unit speaking with other patients about their problems and attempting to solve them. Patient was compliant with redirection and was attending groups. She reported that she felt ready to return home to her children but continued to be uncertain as to where she would receive care. Mental Status Exam MSE Comments: This is an overweight [place] woman in hospital scrubs with adequate grooming and eye contact. There is no evidence of any abnormal involuntary motor movements tics or tremors. She was intrusive and persistent throughout the interview. Speech was normal in regards to rate rhythm and prosody. Her mood described as good. Her affect appeared labile and excessively euphoric. Thought process was expansive. She focused on conversation on a wide swath of physical complaints. Thought content: patient denies suicidal or homicidal ideation; There was continued grandiosity noted and continued overvalued ideas appreciated. Her attention and concentration are mostly intact. Her memory appeared unreliable though none were formally tested. She is alert and oriented to person, place and time but not purpose. Insight and judgment are impaired. Impulse control is impaired. Vitals/I&O/Wt Last Vital Signs Temp 97.3 F L 09/20/22 06:00 Pulse 76 09/20/22 06:00 Resp 16 09/20/22 06:00 BP 137/85 09/20/22 06:00 Pulse Ox 97 09/20/22 06:00 O2 Del Method 09/15/22 06:00 Data NPU : 08/28/22 Unknown 08/28/22 Unknown A&P Assessment and plan (1) Juanita: (2) Psychosis: Plan This is a 52 year old Cuban born woman with a possible history of juanita/bipolar disorder in the past who presents appearing manic and off of medication but not believing she needs any assistance, believing that the ones who brought her here are the ones who need help. 1. Continue current medications. Continue abilify at 20mg in am. Switch to Depakote DR 500mg bid. Administered Abilify Maintena 400 mg IM 09/06/22. 2. Encourage individual, group and milieu therapy 3. Continue q-15 minute check for safety 4. 21-day hold granted with final day of 21-day hold 09/27/2022. Involuntary Hold Information 96 Hour Hold: 96 Hour Involuntary Admission: Yes 96 Hour Hold Ending Date: 09/04/22 96 Hour Hold Ending Time: 22:25 Attestations NPU Medical Necessity Statement*: Inpatient hospitalization is medically necessary and the clinically appropriate intervention at this time. We will monitor medications and make changes as indicated. Her likely length of stay is 5- 7days, she continues to show improvement with antipsychotic medication but remains manic and addition of depakote is essential. Coding Level of Care Code Established Pt Acute [facility] Office Supervisor for [facility] Patient Type Established History Problem Focused Exam Problem Focused Medical Decision Making Straight Forward Diagnoses Juanita F30.9 Psychosis F29
[2022-09-20 20:10] VITALS: BP 127/78; PULSE 82; RESP 18; TEMP 36.6; O2SAT 96
[2022-09-21 06:00] VITALS: BP 122/99; PULSE 64; RESP 16; TEMP 36.5; O2SAT 98
[2022-09-21] MEDS: ARIPiprazole 10 mg Tablet 20 MG PO (08:43)
[2022-09-21] MEDS: divalproex DR 500 mg Tablet PO ×2 (08:43→18:34)
[2022-09-21 14:00] VITALS: BP 151/89; PULSE 85; RESP 18; TEMP 523.8; TEMP 975; O2SAT 99
--- NOTE | 2022-09-21 18:02 | W.PM.NPUPNS ---
Subjective NPU Subjective: Patient presents today reporting that things are improving with her family. She reports a plan to possibly move to [place] after discharge so that her family can be more supportive. She reports that they agreed not to do any more exorcisms. We discussed that she was doing better on the medication but she believes firmly that she felt better because of the presence of the Holy Spirit on the unit. A lengthy discussion revealed her having 0 insight into her illness and not believing that her improvement is due to treatment of her juanita/bipolar disorder/schizoaffective disorder Vitals/I&O/Wt Last Vital Signs Temp 98.0 F 09/21/22 20:02 Pulse 84 09/21/22 20:02 Resp 16 09/21/22 20:02 BP 135/90 09/21/22 20:02 Pulse Ox 93 09/21/22 20:02 O2 Del Method 09/21/22 20:02 Data NPU : 08/28/22 Unknown 08/28/22 Unknown A&P Assessment and plan (1) Juanita: (2) Psychosis: Plan This is a 52 year old [place]iquais born woman with a possible history of juanita/bipolar disorder in the past who presents appearing manic and off of medication but not believing she needs any assistance, believing that the ones who brought her here are the ones who need help. 1. Continue current medications. Continue abilify at 20mg in am. Switch to Depakote DR 500mg bid. Administered Abilify Maintena 400 mg IM 09/06/22. 2. Encourage individual, group and milieu therapy 3. Continue q-15 minute check for safety 4. 21-day hold granted with final day of 21-day hold 09/27/2022. We will need to consider a 90-day hold versus possible discharge but increased pain involvement. We will need to have family meeting about these 2 options. Involuntary Hold Information 96 Hour Hold: 96 Hour Involuntary Admission: Yes 96 Hour Hold Ending Date: 09/04/22 96 Hour Hold Ending Time: 22:25 Attestations NPU Medical Necessity Statement*: Inpatient hospitalization is medically necessary and the clinically appropriate intervention at this time. We will monitor medications and make changes as indicated. Her likely length of stay is 4-6 days, she continues to show improvement with antipsychotic medication but remains manic and addition of depakote is essential. Coding Level of Care Code Acute Radio Frequency Engineer for [facility] Diagnoses Juanita F30.9 Psychosis F29
[2022-09-21 20:02] VITALS: BP 135/90; PULSE 84; RESP 16; TEMP 36.7; O2SAT 93
[2022-09-22 06:00] VITALS: BP 114/75; PULSE 64; RESP 16; TEMP 36.7; O2SAT 96
[2022-09-22] MEDS: ARIPiprazole 10 mg Tablet 20 MG PO (08:17)
[2022-09-22] MEDS: divalproex DR 500 mg Tablet PO ×2 (08:17→17:45)
--- NOTE | 2022-09-22 12:49 | W.PM.NPUPNS ---
Subjective NPU Subjective: Patient is today continuing to report that she is improving and that she is working with her family on a possible discharge strategy. She endorsed them possibly finding someplace in the [facility]. She acknowledges her being agreeable to this is quite a departure from her admission. She continued to demonstrate limited insight on her illness talking about demons being inside and needing to be removed versus the medication being the goodrich. When discussing the the impact medication has had she discussed it being a miracle that the medication has not caused some irreparable or insurmountable side effects or problems. Mental Status Exam MSE Comments: This is an overweight [place] Islander woman in hospital scrubs with adequate grooming and eye contact. There is no evidence of any abnormal involuntary motor movements tics or tremors. She was intrusive and persistent throughout the interview. Speech was normal in regards to rate rhythm and prosody. Her mood described as good. Her affect appeared less labile and more euthymic. Thought process was organized. Thought content: patient denies suicidal or homicidal ideation; There was continued grandiosity noted and continued overvalued ideas appreciated. Her attention and concentration are mostly intact. Her memory appeared unreliable though none were formally tested. She is alert and oriented to person, place and time but not purpose. Insight and judgment are impaired. Impulse control is impaired. Vitals/I&O/Wt Last Vital Signs Temp 98.0 F 09/22/22 06:00 Pulse 64 09/22/22 06:00 Resp 16 09/22/22 06:00 BP 114/75 09/22/22 06:00 Pulse Ox 96 09/22/22 06:00 O2 Del Method 09/22/22 06:00 Data NPU : 08/28/22 Unknown 08/28/22 Unknown A&P Assessment and plan (1) Juanita: (2) Psychosis: Plan This is a 52 year old [place] born woman with a possible history of juanita/bipolar disorder in the past who presents appearing manic and off of medication but not believing she needs any assistance, believing that the ones who brought her here are the ones who need help. 1. Continue current medications. Continue abilify at 20mg in am. Switch to Depakote DR 500mg bid. Administered Abilify Maintena 400 mg IM 09/06/22. 2. Encourage individual, group and milieu therapy 3. Continue q-15 minute check for safety 4. 21-day hold granted with final day of 21-day hold 09/27/2022. We will need to consider a 90-day hold versus possible discharge but increased family involvement. We will need to have family meeting about these 2 options. Involuntary Hold Information 96 Hour Hold: 96 Hour Involuntary Admission: Yes 96 Hour Hold Ending Date: 09/04/22 96 Hour Hold Ending Time: 22:25 Attestations NPU Medical Necessity Statement*: Inpatient hospitalization is medically necessary and the clinically appropriate intervention at this time. We will monitor medications and make changes as indicated. Her likely length of stay is 4-6 days, she continues to show improvement with antipsychotic medication but remains manic and addition of depakote is essential. Coding Level of Care Code Acute Bulb Tester for [facility] Diagnoses Juanita F30.9 Psychosis F29
[2022-09-22 14:00] VITALS: BP 127/77; PULSE 74; RESP 18; TEMP 36.7; O2SAT 96
[2022-09-22 22:00] VITALS: BP 144/90; PULSE 79; RESP 18; TEMP 36.6; O2SAT 94
[2022-09-23] MEDS: divalproex DR 500 mg Tablet PO ×2 (09:07→17:25)
[2022-09-23] MEDS: ARIPiprazole 10 mg Tablet 20 MG PO (09:07)
--- NOTE | 2022-09-23 10:19 | W.PM.NPUPNS ---
Subjective NPU Subjective: Patient presents today reporting that she is feeling fine. She continues to have significant resistance to the idea of being on medication. She reports that she is having continued planning for being with her family in [place] after discharge. We agreed that this scientific writer attempted to talk to her son today to figure out what they were thinking and what their timelines looked like. We discussed importance of that given her hold will on September 27 and will need to decide if we will continue her hold or discharge. Mental Status Exam MSE Comments: This is an overweight [place] woman in hospital scrubs with adequate grooming and eye contact. There is no evidence of any abnormal involuntary motor movements tics or tremors. She was intrusive and persistent throughout the interview. Speech was normal in regards to rate rhythm and prosody. Her mood described as good. Her affect appeared less labile and slightly subdued. Thought process was organized. Thought content: patient denies suicidal or homicidal ideation; There was continued grandiosity noted and continued overvalued ideas appreciated. Her attention and concentration are mostly intact. Her memory appeared unreliable though none were formally tested. She is alert and oriented to person, place and time but not purpose. Insight and judgment are impaired. Impulse control is improving. Vitals/I&O/Wt Last Vital Signs Temp 97.8 F 09/22/22 22:00 Pulse 79 09/22/22 22:00 Resp 18 09/22/22 22:00 BP 144/90 09/22/22 22:00 Pulse Ox 94 09/22/22 22:00 O2 Del Method 09/22/22 22:00 Data NPU : 08/28/22 Unknown 08/28/22 Unknown A&P Assessment and plan (1) Juanita: (2) Psychosis: Plan This is a 52 year old [place] born woman with a possible history of juanita/bipolar disorder in the past who presents appearing manic and off of medication but not believing she needs any assistance, believing that the ones who brought her here are the ones who need help. 1. Continue current medications. Continue abilify at 20mg in am. Switch to Depakote DR 500mg bid. Administered Abilify Maintena 400 mg IM 09/06/22. 2. Encourage individual, group and milieu therapy 3. Continue q-15 minute check for safety 4. 21-day hold granted with final day of 21-day hold 09/27/2022. We will need to consider a 90-day hold versus possible discharge but increased family involvement. We will need to have family meeting about these 2 options. Involuntary Hold Information 96 Hour Hold: 96 Hour Involuntary Admission: Yes 96 Hour Hold Ending Date: 09/04/22 96 Hour Hold Ending Time: 22:25 Attestations NPU Medical Necessity Statement*: Inpatient hospitalization is medically necessary and the clinically appropriate intervention at this time. We will monitor medications and make changes as indicated. Her likely length of stay is 4-6 days. Coding Level of Care Code Acute Respiratory Therapist Assistant for [facility] Fwd Diagnoses Juanita F30.9 Psychosis F29
[2022-09-23 14:00] VITALS: BP 120/77; PULSE 82; RESP 16; TEMP 36.9; O2SAT 94
[2022-09-23 19:38] VITALS: BP 137/85; PULSE 79; RESP 17; TEMP 36.7; O2SAT 96
[2022-09-24 06:00] VITALS: BP 141/75; PULSE 65; RESP 15; TEMP 36.4; O2SAT 97
[2022-09-24] MEDS: ARIPiprazole 10 mg Tablet 20 MG PO (08:17)
[2022-09-24] MEDS: divalproex DR 500 mg Tablet PO ×2 (08:17→17:38)
--- NOTE | 2022-09-24 08:29 | W.PM.NPUPNS ---
Subjective NPU Subjective: Patient visited today reporting that she continue to work with her family about plan to take her to the [facility]. We discussed trying to make the decision of whether to extend a hold or discharge her to family. She agreed to talk to her son we came to visit later. She continues to deny major side effects but seems to try to downplay medication impact. Mental Status Exam MSE Comments: This is an overweight [place] woman in hospital scrubs with adequate grooming and eye contact. There is no evidence of any abnormal involuntary motor movements tics or tremors. She was intrusive and persistent throughout the interview. Speech was normal in regards to rate rhythm and prosody. Her mood described as okay. Her affect appeared less labile and slightly subdued. Thought process was organized. Thought content: patient denies suicidal or homicidal ideation; There was continued grandiosity noted and continued overvalued ideas appreciated. Her attention and concentration are mostly intact. Her memory appeared unreliable though none were formally tested. She is alert and oriented to person, place and time but not purpose. Insight and judgment are impaired. Impulse control is improving. Vitals/I&O/Wt Last Vital Signs Temp 97.5 F L 09/24/22 06:00 Pulse 65 09/24/22 06:00 Resp 15 09/24/22 06:00 BP 141/75 09/24/22 06:00 Pulse Ox 97 09/24/22 06:00 O2 Del Method 09/22/22 22:00 Weight last 48 hrs Weight 83.552 kg Data NPU : 08/28/22 Unknown 08/28/22 Unknown A&P Assessment and plan (1) Juanita: (2) Psychosis: Plan This is a 52 year old [place] born woman with a possible history of juanita/bipolar disorder in the past who presents appearing manic and off of medication but not believing she needs any assistance, believing that the ones who brought her here are the ones who need help. 1. Continue current medications. Continue abilify at 20mg in am. Switch to Depakote DR 500mg bid. Administered Abilify Maintena 400 mg IM 09/06/22. 2. Encourage individual, group and milieu therapy 3. Continue q-15 minute check for safety 4. 21-day hold granted with final day of 21-day hold 09/27/2022. We will need to consider a 90-day hold versus possible discharge but increased family involvement. We will need to have family meeting about these 2 options. Involuntary Hold Information 96 Hour Hold: 96 Hour Involuntary Admission: Yes 96 Hour Hold Ending Date: 09/04/22 96 Hour Hold Ending Time: 22:25 Attestations NPU Medical Necessity Statement*: Inpatient hospitalization is medically necessary and the clinically appropriate intervention at this time. We will monitor medications and make changes as indicated. Her likely length of stay is 4-6 days. Coding Level of Care Code Acute Insulation Applicator for Ever Fwd Diagnoses Juanita F30.9 Psychosis F29
[2022-09-24 14:00] VITALS: BP 117/73; PULSE 77; RESP 18; TEMP 36.6; O2SAT 98
[2022-09-24 20:33] VITALS: BP 143/85; PULSE 82; RESP 16; TEMP 36.6; O2SAT 98
[2022-09-25 06:00] VITALS: BP 139/85; PULSE 70; RESP 15; TEMP 36.6; O2SAT 98
[2022-09-25] MEDS: ARIPiprazole 10 mg Tablet 20 MG PO (08:19)
[2022-09-25] MEDS: divalproex DR 500 mg Tablet PO ×2 (08:19→17:10)
--- NOTE | 2022-09-25 10:57 | P.NPUPN_ITS ---
Subjective NPU Subjective: Patient presents today reporting that she had visitors yesterday that were trying to get her to consider exorcism. She continues to be absent insight about her condition. We discussed the need to likely increase her Depakote after getting a Depakote level, but also discussed the possibility of getting her restarted on lithium trying to recreate the medication regimen that led to her success last time she was doing well. She continues to be resistant to medications and we discussed the likelihood of a 90-day hold on Sunday she requested that we contact her brother in [place] and assist her in just getting home. Mental Status Exam MSE Comments: This is an overweight [place] woman in hospital scrubs with adequate grooming and eye contact. There is no evidence of any abnormal involuntary motor movements tics or tremors. She was intrusive and persistent throughout the interview. Speech was normal in regards to rate rhythm and prosody. Her mood described as okay. Her affect appeared less labile and slightly subdued. Thought process was organized. Thought content: patient denies suicidal or homicidal ideation; There was continued grandiosity noted and continued overvalued ideas appreciated. Her attention and concentration are mostly intact. Her memory appeared unreliable though none were formally tested. She is alert and oriented to person, place and time but not purpose. Insight and judgment are impaired. Impulse control is improving. Vitals/I&O/Wt Last Vital Signs Temp 97.8 F 09/25/22 06:00 Pulse 70 09/25/22 06:00 Resp 15 09/25/22 06:00 BP 139/85 09/25/22 06:00 Pulse Ox 98 09/25/22 06:00 O2 Del Method 09/22/22 22:00 Weight last 48 hrs Weight 83.552 kg Data NPU : 08/28/22 Unknown 08/28/22 Unknown A&P Assessment and plan (1) Juanita: (2) Psychosis: Plan This is a 52 year old [place] born woman with a possible history of juanita/bipolar disorder in the past who presents appearing manic and off of medication but not believing she needs any assistance, believing that the ones who brought her here are the ones who need help. 1. Continue current medications. Continue abilify at 20mg in am. Switch to Depakote DR 500mg bid. Administered Abilify Maintena 400 mg IM 09/06/22. 2. Encourage individual, group and milieu therapy 3. Continue q-15 minute check for safety 4. 21-day hold granted with final day of 21-day hold 09/27/2022. We will need to consider a 90-day hold versus possible discharge but increased family involvement. Involuntary Hold Information 96 Hour Hold: 96 Hour Involuntary Admission: Yes 96 Hour Hold Ending Date: 09/04/22 96 Hour Hold Ending Time: 22:25 Attestations NPU Medical Necessity Statement*: Inpatient hospitalization is medically necessary and the clinically appropriate intervention at this time. We will monitor medications and make changes as indicated. Her likely length of stay is 7 to 14 days. Coding Level of Care Code Acute Manufacturing Production Technician for Ever Fwd Diagnoses Juanita F30.9 Psychosis F29
[2022-09-25 15:43] VITALS: BP 139/85; PULSE 70; RESP 15; TEMP 36.6; O2SAT 98
[2022-09-25 20:41] VITALS: BP 144/87; PULSE 87; RESP 16; TEMP 36.5; O2SAT 96
[2022-09-26 05:54] VITALS: BP 138/82; PULSE 73; RESP 16; TEMP 36.8; O2SAT 99
[2022-09-26] MEDS: ARIPiprazole 10 mg Tablet 20 MG PO (08:31)
[2022-09-26] MEDS: divalproex DR 500 mg Tablet PO ×2 (08:31→18:28)
--- NOTE | 2022-09-26 12:52 | W.PM.NPUPNS ---
Subjective NPU Subjective: Patient presents today continuing to have a focus on discharge and having limited insight into being bipolar. She continued to focus on people visiting her attempting exorcisms. We agreed we would get a Depakote level and to try to maximize her Depakote dose and consider initiation of lithium for the commendation in successful for her prior to discontinuing her medications. We discussed family working on guardianship. Mental Status Exam MSE Comments: This is an overweight woman in hospital scrubs with adequate grooming and eye contact. There is no evidence of any abnormal involuntary motor movements tics or tremors. She is mostly cooperative with exam in mild distress. Speech was normal in regards to rate rhythm and prosody. Her mood described as okay. Her affect appeared less labile and slightly subdued. Thought process was organized. Thought content: patient denies suicidal or homicidal ideation; There was continued grandiosity noted and continued overvalued ideas appreciated. Her attention and concentration are mostly intact. Her memory appeared unreliable though none were formally tested. She is alert and oriented to person, place and time but not purpose. Insight and judgment are impaired. Impulse control is improving. Vitals/I&O/Wt Last Vital Signs Temp 97.7 F 09/25/22 20:41 Pulse 87 09/25/22 20:41 Resp 16 09/25/22 20:41 BP 144/87 09/25/22 20:41 Pulse Ox 96 09/25/22 20:41 O2 Del Method 09/22/22 22:00 Data NPU : 08/28/22 Unknown 08/28/22 Unknown A&P Assessment and plan (1) Juanita: (2) Psychosis: Plan This is a 52 year old born woman with a possible history of juanita/bipolar disorder in the past who presents appearing manic and off of medication but not believing she needs any assistance, believing that the ones who brought her here are the ones who need help. 1. Continue current medications. Continue abilify at 20mg in am. Switch to Depakote DR 500mg bid. Administered Abilify Maintena 400 mg IM 09/06/22. 2. Encourage individual, group and milieu therapy 3. Continue q-15 minute check for safety 4. 21-day hold granted with final day of 21-day hold 09/27/2022. We will file for a 90-day hold tomorrow as family looks into guardianship. Involuntary Hold Information 96 Hour Hold: 96 Hour Involuntary Admission: Yes 96 Hour Hold Ending Date: 09/04/22 96 Hour Hold Ending Time: 22:25 Attestations NPU Medical Necessity Statement*: Inpatient hospitalization is medically necessary and the clinically appropriate intervention at this time. We will monitor medications and make changes as indicated. Her likely length of stay is 14-21 days. Coding Level of Care Code Acute Insurance Sales Representative for [facility] Fwd Diagnoses Juanita F30.9 Psychosis F29
[2022-09-26 14:00] VITALS: BP 122/74; PULSE 88; RESP 15; TEMP 36.6; O2SAT 95
[2022-09-26 22:00] VITALS: BP 134/83; PULSE 88; RESP 16; TEMP 36.5; O2SAT 97
[2022-09-26 22:42] LABS: Valproic Acid Level 13.1 ug/mL (50-100)
[2022-09-27 06:00] VITALS: BP 134/83; PULSE 76; RESP 15; TEMP 36.4; O2SAT 98
[2022-09-27] MEDS: divalproex DR 500 mg Tablet PO (07:46)
[2022-09-27] MEDS: ARIPiprazole 10 mg Tablet 20 MG PO (07:47)
--- NOTE | 2022-09-27 13:20 | W.PM.NPUPNS ---
Subjective NPU Subjective: Patient presented today reporting that she is doing okay but gave me a few sheets of paper with a reported lesson for children in school. It appeared the purpose of the lesson was to avoid sex education in school by using rooster and hen to avoid any of the realities of male-female sexuality. Beyond that aspect of it everything else that she said was confusing and her basic math was full of errors. We discussed her Depakote level coming back low and increasing it to 1000 mg p.o. twice daily. She was not happy about the change but we continued to talk about getting her Depakote to a better level and then adding lithium. Mental Status Exam MSE Comments: This is an overweight [place] woman in hospital scrubs with adequate grooming and eye contact. There is no evidence of any abnormal involuntary motor movements tics or tremors. She is mostly cooperative with exam in mild distress. Speech was normal in regards to rate rhythm and prosody. Her mood described as I just want to go back home. Her affect appeared less labile and slightly subdued. Thought process was organized. Thought content: patient denies suicidal or homicidal ideation; There was continued grandiosity noted and continued overvalued ideas appreciated. Her attention and concentration are mostly intact. Her memory appeared unreliable though none were formally tested. She is alert and oriented to person, place and time but not purpose. Insight and judgment are impaired. Impulse control is improving. Vitals/I&O/Wt Last Vital Signs Temp 97.6 F 09/27/22 06:00 Pulse 76 09/27/22 06:00 Resp 15 09/27/22 06:00 BP 134/83 09/27/22 06:00 Pulse Ox 98 09/27/22 06:00 O2 Del Method 09/27/22 06:00 Data NPU : 08/28/22 Unknown 08/28/22 Unknown A&P Assessment and plan (1) Juanita: (2) Psychosis: Plan This is a 52 year old [place] born woman with a possible history of juanita/bipolar disorder in the past who presents appearing manic and off of medication but not believing she needs any assistance, believing that the ones who brought her here are the ones who need help. 1. Continue current medications. Continue abilify at 20mg in am. Increase to Depakote DR 1000mg bid. Administered Abilify Maintena 400 mg IM 09/06/22. Plan for initiation of lithium. 2. Encourage individual, group and milieu therapy 3. Continue q-15 minute check for safety 4. 21-day hold granted with final day of 21-day hold 09/27/2022. Filed for a 90-day hold as family looks into guardianship. Involuntary Hold Information 96 Hour Hold: 96 Hour Involuntary Admission: Yes 96 Hour Hold Ending Date: 09/04/22 96 Hour Hold Ending Time: 22:25 Attestations NPU Medical Necessity Statement*: Inpatient hospitalization is medically necessary and the clinically appropriate intervention at this time. We will monitor medications and make changes as indicated. Her likely length of stay is 14-21 days. Coding Level of Care Code Acute Home Health Specialist for Ever Fwd Diagnoses Juanita F30.9 Psychosis F29
[2022-09-27 14:00] VITALS: BP 140/93; PULSE 91; RESP 16; TEMP 36.6; O2SAT 96
[2022-09-27] MEDS: divalproex DR 500 mg Tablet 1000 MG PO (17:56)
[2022-09-27 22:00] VITALS: BP 144/76; PULSE 109; RESP 16; TEMP 36.3; O2SAT 96
[2022-09-28 05:59] VITALS: BP 144/76; PULSE 109; RESP 16; TEMP 36.3; O2SAT 96
[2022-09-28 06:35] VITALS: BP 138/82; PULSE 86; RESP 17; TEMP 36.4; O2SAT 96
--- NOTE | 2022-09-28 08:14 | P.NPUPN_ITS ---
Subjective NPU Subjective: Patient presents today worrying about discharge as well as the increase in Depakote. She is aware of the 90-day hold hearing to be held on Sunday. And she is giving me letters and writings that continue to demonstrate her disorganization and poor functioning. We discussed her low Depakote level and the need for the increase. Mental Status Exam MSE Comments: This is an overweight [place] woman in hospital scrubs with adequate grooming and eye contact. There is no evidence of any abnormal invo luntary motor movements tics or tremors. She is mostly cooperative with exam in mild to moderate distress. Speech was normal in regards to rate rhythm and prosody. Her mood described as the medications are too much. Her affect appeared less labile and slightly subdued. Thought process was mostly organized with continued areas of disorganization. Thought content: patient denies suicidal or homicidal ideation; There was continued grandiosity noted and continued overvalued ideas appreciated. Her attention and concentration are mostly intact. Her memory appeared unreliable though none were formally tested. She is alert and oriented to person, place and time but not purpose. Insight and judgment are impaired. Impulse control is improving. Vitals/I&O/Wt Last Vital Signs Temp 97.6 F 09/28/22 06:35 Pulse 86 09/28/22 06:35 Resp 17 09/28/22 06:35 BP 138/82 09/28/22 06:35 Pulse Ox 96 09/28/22 06:35 O2 Del Method 09/28/22 06:35 Data NPU : 08/28/22 Unknown 08/28/22 Unknown A&P Assessment and plan (1) Juanita: (2) Psychosis: Plan This is a 52 year old [place] born woman with a possible history of juanita/bipolar disorder in the past who presents appearing manic and off of medication but not believing she needs any assistance, believing that the ones who brought her here are the ones who need help. 1. Continue current medications. Continue abilify at 20mg in am. Increase to Depakote DR 1000mg bid. Administered Abilify Maintena 400 mg IM 09/06/22. Plan for initiation of lithium. 2. Encourage individual, group and milieu therapy 3. Continue q-15 minute check for safety 4. 21-day hold granted with final day of 21-day hold 09/27/2022. Filed for a 90-day hold but hearing date on 10/02/2022 as family looks into guardianship. Involuntary Hold Information 96 Hour Hold: 96 Hour Involuntary Admission: Yes 96 Hour Hold Ending Date: 09/04/22 96 Hour Hold Ending Time: 22:25 Attestations NPU Medical Necessity Statement*: Inpatient hospitalization is medically necessary and the clinically appropriate intervention at this time. We will monitor medications and make changes as indicated. Her likely length of stay is 14-21 days. Coding Level of Care Code Acute Exceptional Student Education Aide for g Fwd Diagnoses Juanita F30.9 Psychosis F29
[2022-09-28] MEDS: ARIPiprazole 10 mg Tablet 20 MG PO (08:38)
[2022-09-28] MEDS: divalproex DR 500 mg Tablet 1000 MG PO ×2 (08:38→17:53)
[2022-09-28 14:00] VITALS: BP 121/77; PULSE 83; RESP 16; O2SAT 96
[2022-09-28 22:00] VITALS: BP 121/77; PULSE 83; RESP 16; TEMP 36.4; O2SAT 96
[2022-09-29 06:00] VITALS: BP 116/76; PULSE 80; RESP 16; TEMP 37; O2SAT 95
[2022-09-29] MEDS: divalproex DR 500 mg Tablet 1000 MG PO ×2 (08:43→18:20)
[2022-09-29] MEDS: ARIPiprazole 10 mg Tablet 20 MG PO (08:43)
[2022-09-29 14:00] VITALS: BP 161/99; PULSE 84; RESP 18; TEMP 36.3; O2SAT 97
--- NOTE | 2022-09-29 16:58 | W.PM.NPUPNS ---
Subjective NPU Subjective: Patient presents today reporting that she is feeling a little better. She continues to try to explain her confusing fourth grade classroom math experiment. She met with her son and reports that she does understand that they are trying to have guardianship but she tried to explain it in a culturally identifiable way that the men are almost essentially guardians in general and that [place] women understand that. We discussed the possibility of decreasing or discontinuing her oral Abilify. Mental Status Exam MSE Comments: This is an overweight [place] woman in hospital scrubs with adequate grooming and eye contact. There is no evidence of any abnormal involuntary motor movements tics or tremors. She is mostly cooperative with exam in no acute distress. Speech was normal in regards to rate rhythm and prosody. Her mood described as okay. Her affect appeared less labile and less subdued. Thought process was mostly organized with continued areas of disorganization. Thought content: patient denies suicidal or homicidal ideation; There was continued grandiosity noted and continued overvalued ideas appreciated. Her attention and concentration are mostly intact. Her memory appeared unreliable though none were formally tested. She is alert and oriented to person, place and time but not purpose. Insight and judgment are impaired. Impulse control is improving. Vitals/I&O/Wt Last Vital Signs Temp 97.4 F L 09/29/22 14:00 Pulse 84 09/29/22 14:00 Resp 18 09/29/22 14:00 BP 161/99 09/29/22 14:00 Pulse Ox 97 09/29/22 14:00 O2 Del Method 09/29/22 06:00 Data NPU : 08/28/22 Unknown 08/28/22 Unknown A&P Assessment and plan (1) Juanita: (2) Psychosis: Plan This is a 52 year old [place] born woman with a possible history of juanita/bipolar disorder in the past who presents appearing manic and off of medication but not believing she needs any assistance, believing that the ones who brought her here are the ones who need help. 1. Continue current medications. Discontinue abilify 20mg in am as she has taken in the past the 14 days after the injection. Increase to Depakote DR 1000mg bid. Administered Abilify Maintena 400 mg IM 09/06/22 next injection 10/04/2022. Plan for initiation of lithium. 2. Encourage individual, group and milieu therapy 3. Continue q-15 minute check for safety 4. 21-day hold granted with final day of 21-day hold 09/27/2022. Filed for a 90-day hold hearing date on 10/02/2022 as family looks into guardianship. Involuntary Hold Information 96 Hour Hold: 96 Hour Involuntary Admission: Yes 96 Hour Hold Ending Date: 09/04/22 96 Hour Hold Ending Time: 22:25 Attestations NPU Medical Necessity Statement*: Inpatient hospitalization is medically necessary and the clinically appropriate intervention at this time. We will monitor medications and make changes as indicated. Her likely length of stay is 14-21 days. Coding Level of Care Code Acute Hospital Cook for Ever Fwd Diagnoses Juanita F30.9 Psychosis F29
[2022-09-29 20:23] VITALS: BP 122/81; PULSE 78; RESP 15; O2SAT 97
[2022-09-30 06:00] VITALS: BP 134/86; PULSE 69; RESP 18; O2SAT 99
--- NOTE | 2022-09-30 07:06 | P.NPUPN_ITS ---
Subjective NPU Subjective: Patient presented today appearing very pleased that he discontinued the medication. We discussed the fact that that was the plan all along to get her stable on the Abilify. Now we will allow her to stabilize with Depakote with the plan for initiating lithium. continues to feel she is on too much medication. But she continues to have some level of disorganization. Mental Status Exam MSE Comments: This is an overweight woman in hospital scrubs with adequate grooming and eye contact. There is no evidence of any abnormal involuntary motor movements tics or tremors. She is mostly cooperative with exam in no acute distress. Speech was normal in regards to rate rhythm and prosody. Her mood described as okay. Her affect appeared less labile and less subdued. Thought process was mostly organized with continued areas of disorganization. Thought content: patient denies suicidal or homicidal ideation; There was continued grandiosity noted and continued overvalued ideas appreciated. Her attention and concentration are mostly intact. Her memory appeared unreliable though none were formally tested. She is alert and oriented to person, place and time but not purpose. Insight and judgment are impaired. Impulse control is improving. Vitals/I&O/Wt Last Vital Signs Temp 97.4 F L 09/29/22 14:00 Pulse 69 09/30/22 06:00 Resp 18 09/30/22 06:00 BP 134/86 09/30/22 06:00 Pulse Ox 99 09/30/22 06:00 O2 Del Method 09/29/22 06:00 Data NPU : 08/28/22 Unknown 08/28/22 Unknown A&P Assessment and plan (1) Juanita: (2) Psychosis: Plan This is a 52 year old born woman with a possible history of juanita/bipolar disorder in the past who presents appearing manic and off of medication but not believing she needs any assistance, believing that the ones who brought her here are the ones who need help. 1. Continue current medications. Discontinued abilify 20mg in am as she has taken in the past the 14 days after the injection. Increase to Depakote DR 1000mg bid. Administered Abilify Maintena 400 mg IM 09/06/22 next injection 10/04/2022. Plan for initiation of lithium. 2. Encourage individual, group and milieu therapy 3. Continue q-15 minute check for safety 4. 21-day hold granted with final day of 21-day hold 09/27/2022. Filed for a 90-day hold hearing date on 10/02/2022 as family looks into guardianship. Involuntary Hold Information 96 Hour Hold: 96 Hour Involuntary Admission: Yes 96 Hour Hold Ending Date: 09/04/22 96 Hour Hold Ending Time: 22:25 Attestations NPU Medical Necessity Statement*: Inpatient hospitalization is medically necessary and the clinically appropriate intervention at this time. We will monitor medications and make changes as indicated. Her likely length of stay is 14-21 d ays. Coding Level of Care Code Acute Classification And Treatment Director for [facility] Fwd Diagnoses Juanita F30.9 Psychosis F29
[2022-09-30] MEDS: divalproex DR 500 mg Tablet 1000 MG PO ×2 (08:25→17:58)
[2022-09-30 14:00] VITALS: BP 175/79; PULSE 79; RESP 20; TEMP 36.3; O2SAT 95
[2022-09-30 20:09] VITALS: BP 149/90; PULSE 73; RESP 17; TEMP 36.4; O2SAT 97
[2022-10-01 06:00] VITALS: BP 108/67; PULSE 91; RESP 16; TEMP 36.3; O2SAT 96
[2022-10-01] MEDS: divalproex DR 500 mg Tablet 1000 MG PO ×2 (08:13→20:19)
[2022-10-01 14:00] VITALS: BP 154/98; PULSE 77; RESP 18; TEMP 36.7; O2SAT 100
--- NOTE | 2022-10-01 14:33 | P.NPUPN_ITS ---
Subjective NPU Subjective: Patient presented today seeming calm and reasonable. She did introduce me to her daughter who was visiting whom I never met but had observed visiting in the past. Patient continues to endorse feeling better with the oral Abilify discontinued. She denied feeling overmedicated today. We discussed continuing to consider initiating lithium but otherwise she had no problems today. Mental Status Exam MSE Comments: This is an overweight woman in hospital scrubs with adequate grooming and eye contact. There is no evidence of any abnormal involuntary motor movements tics or tremors. She is mostly cooperative with exam in no acute distress. Speech was normal in regards to rate rhythm and prosody. Her mood described as fine. Her affect appeared congruent but slightly subdued. Thought process was mostly organized with less periods of disorganization noted. Thought content: patient denies suicidal or homicidal ideation; There was no grandiosity noted and or overvalued ideas appreciated today. Her attention and concentration are mostly intact. Her memory appeared unreliable though none were formally tested. She is alert and oriented to person, place and time but not purpose. Insight and judgment are impaired. Impulse control is improving. Vitals/I&O/Wt Last Vital Signs Temp 97.4 F L 10/01/22 06:00 Pulse 91 10/01/22 06:00 Resp 16 10/01/22 06:00 BP 108/67 10/01/22 06:00 Pulse Ox 96 10/01/22 06:00 O2 Del Method 09/30/22 14:00 Weight last 48 hrs Weight 82.282 kg Data NPU : 08/28/22 Unknown 08/28/22 Unknown A&P Assessment and plan (1) Juanita: (2) Psychosis: Plan This is a 52 year old born woman with a possible history of juanita/bipolar disorder in the past who presents appearing manic and off of medication but not believing she needs any assistance, believing that the ones who brought her here are the ones who need help. 1. Continue current medications. Discontinued abilify 20mg in am as she has taken in the past the 14 days after the injection. Increase to Depakote DR 1000mg bid. Administered Abilify Maintena 400 mg IM 09/06/22 next injection 10/04/2022. Plan for initiation of lithium. 2. Encourage individual, group and milieu therapy 3. Continue q-15 minute check for safety 4. 21-day hold granted with final day of 21-day hold 09/27/2022. Filed for a 90-day hold hearing date on 10/02/2022 as family looks into guardianship. Involuntary Hold Information 96 Hour Hold: 96 Hour Involuntary Admission: Yes 96 Hour Hold Ending Date: 09/04/22 96 Hour Hold Ending Time: 22:25 Attestations NPU Medical Necessity Statement*: Inpatient hospitalization is medically necessary and the clinically appropriate intervention at this time. We will monitor medications and make changes as indicated. Her likely length of stay is 14-21 days. Coding Level of Care Code Acute Supervisor Agency Appointments for g Fwd Diagnoses Juanita F30.9 Psychosis F29
[2022-10-01 20:05] VITALS: BP 129/87; PULSE 74; RESP 16; TEMP 36.3; O2SAT 93
[2022-10-02 06:00] VITALS: BP 110/74; PULSE 66; RESP 17; TEMP 36.5; O2SAT 97
[2022-10-02] MEDS: divalproex DR 500 mg Tablet 1000 MG PO ×2 (07:21→19:59)
--- NOTE | 2022-10-02 10:24 | W.PM.NPUPNS ---
Subjective NPU Subjective: Patient is today reporting that she is going to go to the hearing. We discussed what we would say at the hearing regarding her needing to stay and continue to improve from the standpoint of her grandiosity and at times disorganized thought. She reported that she thought the guardianship would be fine but we discussed that it is complicated given her different living situations. Mental Status Exam MSE Comments: This is an overweight [place] woman in hospital scrubs with adequate grooming and eye contact. There is no evidence of any abnormal involuntary motor movements tics or tremors. She is mostly cooperative with exam in no acute distress. Speech was normal in regards to rate rhythm and prosody. Her mood described as okay. Her affect appeared congruent but slightly subdued. Thought process was mostly organized with less periods of disorganization noted. Thought content: patient denies suicidal or homicidal ideation; There was no grandiosity noted and or overvalued ideas appreciated today. Her attention and concentration are mostly intact. Her memory appeared unreliable though none were formally tested. She is alert and oriented to person, place and time but not purpose. Insight and judgment are impaired. Impulse control is improving. Vitals/I&O/Wt Last Vital Signs Temp 97.4 F L 10/01/22 20:05 Pulse 74 10/01/22 20:05 Resp 16 10/01/22 20:05 BP 129/87 10/01/22 20:05 Pulse Ox 93 10/01/22 20:05 O2 Del Method 10/01/22 14:00 Weight last 48 hrs Weight 82.282 kg Data NPU : 08/28/22 Unknown 08/28/22 Unknown A&P Assessment and plan (1) Juanita: (2) Psychosis: Plan This is a 52 year old [place] born woman with a possible history of juanita/bipolar disorder in the past who presents appearing manic and off of medication but not believing she needs any assistance, believing that the ones who brought her here are the ones who need help. 1. Continue current medications. Discontinued abilify 20mg in am as she has taken in the past the 14 days after the injection. Increase to Depakote DR 1000mg bid. Administered Abilify Maintena 400 mg IM 09/06/22 next injection 10/04/2022. Plan for initiation of lithium. 2. Encourage individual, group and milieu therapy 3. Continue q-15 minute check for safety 4. 21-day hold granted with final day of 21-day hold 09/27/2022. 90-day hold hearing today as family looks into guardianship. Involuntary Hold Information 96 Hour Hold: 96 Hour Involuntary Admission: Yes 96 Hour Hold Ending Date: 09/04/22 96 Hour Hold Ending Time: 22:25 Attestations NPU Medical Necessity Statement*: Inpatient hospitalization is medically necessary and the clinically appropriate intervention at this time. We will monitor medications and make changes as indicated. Her likely length of stay is 14-21 days. Coding Level of Care Code Acute Exhibitions Curator for Ever Fwd Diagnoses Juanita F30.9 Psychosis F29
[2022-10-02 14:00] VITALS: BP 140/89; PULSE 93; RESP 18; TEMP 36.6; O2SAT 99
[2022-10-02 20:05] VITALS: BP 143/85; PULSE 88; RESP 16; TEMP 36.6; O2SAT 95
[2022-10-03 06:00] VITALS: BP 103/67; PULSE 62; RESP 16; TEMP 36.4; O2SAT 97
[2022-10-03] MEDS: divalproex DR 500 mg Tablet 1000 MG PO ×2 (09:21→20:51)
[2022-10-03] MEDS: fluticasone nasal spray 16gm Btl 1 SPRAY NASAL (10:28)
[2022-10-03 14:00] VITALS: BP 122/80; PULSE 76; RESP 18; TEMP 36.8; O2SAT 98
--- NOTE | 2022-10-03 16:45 | W.PM.NPUPNS ---
Subjective NPU Subjective: Had a lengthy discussion with patient and her daughter regarding the guardianship process and the whys for that approach. Patient continues to have moments of cognitive disconnection but otherwise is less religiously preoccupied but did spend time with her daughter and this group underwriter today talking about the exorcisms and her not feeling it was necessary but still bleeding her bipolar disorder is actually demons. She reports feeling continued improvement since the oral Abilify was discontinued. Mental Status Exam MSE Comments: This is an overweight woman in hospital scrubs with adequate grooming and eye contact. There is no evidence of any abnormal involuntary motor movements tics or tremors. She is mostly cooperative with exam in no acute distress. Speech was normal in regards to rate rhythm and prosody. Her mood described as okay. Her affect appeared congruent but slightly subdued. Thought process was mostly organized with less periods of disorganization noted. Thought content: patient denies suicidal or homicidal ideation; There was no grandiosity noted and or overvalued ideas appreciated today. Her attention and concentration are mostly intact. Her memory appeared unreliable though none were formally tested. She is alert and oriented to person, place and time but not purpose. Insight and judgment are impaired. Impulse control is improving. Vitals/I&O/Wt Last Vital Signs Temp 97.4 F L 10/03/22 20:19 Pulse 75 10/03/22 20:19 Resp 18 10/03/22 20:19 BP 128/82 10/03/22 20:19 Pulse Ox 96 10/03/22 20:19 O2 Del Method 10/03/22 14:00 Data NPU : 08/28/22 Unknown 08/28/22 Unknown A&P Assessment and plan (1) Juanita: (2) Psychosis: Plan This is a 52 year old born woman with a possible history of juanita/bipolar disorder in the past who presents appearing manic and off of medication but not believing she needs any assistance, believing that the ones who brought her here are the ones who need help. 1. Continue current medications. Discontinued abilify 20mg in am as she has taken it past the 14 days after the injection. Increase to Depakote DR 1000mg bid. Administered Abilify Maintena 400 mg IM 09/06/22 next injection 10/04/2022. Plan for initiation of lithium. 2. Encourage individual, group and milieu therapy 3. Continue q-15 minute check for safety 4. 21-day hold granted with final day of 21-day hold 09/27/2022. 90-day hold hearing today as family looks into guardianship. Involuntary Hold Information 96 Hour Hold: 96 Hour Involuntary Admission: Yes 96 Hour Hold Ending Date: 09/04/22 96 Hour Hold Ending Time: 22:25 Attestations NPU Medical Necessity Statement*: Inpatient hospitalization is medically necessary and the clinically appropriate intervention at this time. We will monitor medications and make changes as indicated. Her likely length of stay is 14-21 days. Coding Level of Care Code Acute Landscape Architect for g Fwd Diagnoses Juanita F30.9 Psychosis F29
[2022-10-03 20:19] VITALS: BP 128/82; PULSE 75; RESP 18; TEMP 36.3; O2SAT 96
[2022-10-04 06:00] VITALS: BP 126/85; PULSE 68; RESP 18; TEMP 36.4; O2SAT 99
[2022-10-04] MEDS: ARIPiprazole Maintena 400 MG IM (07:56)
[2022-10-04] MEDS: divalproex DR 500 mg Tablet 1000 MG PO ×2 (08:37→20:07)
[2022-10-04 14:00] VITALS: BP 146/87; PULSE 81; RESP 16; TEMP 36.8; O2SAT 96
--- NOTE | 2022-10-04 18:09 | W.PM.NPUPNS ---
Subjective NPU Subjective: Patient presented today reporting that she is feeling okay. She has some confusion about the guardianship process and we have explained how much multiple times and we will continue to assist her in understanding her circumstance. She endorsed receiving her Abilify Maintena injection and she denied any issues with that or other medication. We discussed the purpose of medication that she continues to struggle with the idea of her having mental illness but seemed to be more capable of saying words surrounding that possibility. Mental Status Exam MSE Comments: This is an overweight woman in hospital scrubs with adequate grooming and eye contact. There is no evidence of any abnormal involuntary motor movements tics or tremors. She is mostly cooperative with exam in no acute distress. Speech was normal in regards to rate rhythm and prosody. Her mood described as okay. Her affect appeared congruent but slightly subdued. Thought process was mostly organized with less periods of disorganization noted. Thought content: patient denies suicidal or homicidal ideation; There was no grandiosity noted and or overvalued ideas appreciated today. Her attention and concentration are mostly intact. Her memory appeared unreliable though none were formally tested. She is alert and oriented to person, place and time but not purpose. Insight and judgment are impaired. Impulse control is improving. Vitals/I&O/Wt Last Vital Signs Temp 97.7 F 10/04/22 22:00 Pulse 74 10/04/22 22:00 Resp 16 10/04/22 22:00 BP 114/71 10/04/22 22:00 Pulse Ox 95 10/04/22 22:00 O2 Del Method 10/04/22 22:00 Data NPU 08/28/22 Unknown 08/28/22 Unknown A&P Assessment and plan (1) Juanita: (2) Psychosis: Plan This is a 52 year old born woman with a possible history of juanita/bipolar disorder in the past who presents appearing manic and off of medication but not believing she needs any assistance, believing that the ones who brought her here are the ones who need help. 1. Continue current medications. Discontinued abilify 20mg in am as she has taken it past the 14 days after the injection. Increase to Depakote DR 1000mg bid. Administered Abilify Maintena 400 mg IM 09/06/22 given next injection today, 10/04/2022. Plan for initiation of lithium. 2. Encourage individual, group and milieu therapy 3. Continue q-15 minute check for safety 4. 21-day hold granted with final day of 21-day hold 09/27/2022. 90-day hold hearing today as family looks into guardianship. Involuntary Hold Information 96 Hour Hold: 96 Hour Involuntary Admission: Yes 96 Hour Hold Ending Date: 09/04/22 96 Hour Hold Ending Time: 22:25 Attestations NPU Medical Necessity Statement*: Inpatient hospitalization is medically necessary and the clinically appropriate intervention at this time. We will monitor medications and make changes as indicated. Her likely length of stay is 14-21 days. Coding Level of Care Code Acute Data Reduction Technician for Ever Fwd Diagnoses Juanita F30.9 Psychosis F29
[2022-10-04 22:00] VITALS: BP 114/71; PULSE 74; RESP 16; TEMP 36.5; O2SAT 95
[2022-10-05 06:00] VITALS: BP 131/89; PULSE 84; RESP 16; TEMP 36.6; O2SAT 97
[2022-10-05] MEDS: divalproex DR 500 mg Tablet 1000 MG PO ×2 (08:20→20:09)
--- NOTE | 2022-10-05 13:42 | W.PM.NPUPNS ---
Subjective NPU Subjective: Patient returns today starting to possibly be more accepting of medication at least in a structured setting. She reports a little tenderness from her recent Abilify Maintena shot. We had a detailed discussion about guardianship and what her family is accepted to accomplish. She continues to demonstrate some thought disorder and has taken to writing everything down both to express herself and to remember what was said to her. Mental Status Exam MSE Comments: This is an overweight [place] woman in hospital scrubs with adequate grooming and eye contact. There is no evidence of any abnormal involuntary motor movements tics or tremors. She is mostly cooperative with exam in no acute distress. Speech was normal in regards to rate rhythm and prosody. Her mood described as okay. Her affect appeared congruent but slightly subdued. Thought process was mostly organized with less periods of disorganization noted. Thought content: patient denies suicidal or homicidal ideation; There was no grandiosity noted and or overvalued ideas appreciated today. Her attention and concentration are mostly intact. Her memory appeared unreliable though none were formally tested. She is alert and oriented to person, place and time but not purpose. Insight and judgment are impaired. Impulse control is improving. Vitals/I&O/Wt Last Vital Signs Temp 97.9 F 10/05/22 06:00 Pulse 84 10/05/22 06:00 Resp 16 10/05/22 06:00 BP 131/89 10/05/22 06:00 Pulse Ox 97 10/05/22 06:00 O2 Del Method 10/05/22 06:00 Data NPU 08/28/22 Unknown 08/28/22 Unknown A&P Assessment and plan (1) Juanita: (2) Psychosis: Plan This is a 52 year old [place] born woman with a possible history of juanita/bipolar disorder in the past who presents appearing manic and off of medication but not believing she needs any assistance, believing that the ones who brought her here are the ones who need help. 1. Continue current medications. Discontinued abilify 20mg in am as she has taken it past the 14 days after the injection. Increase to Depakote DR 1000mg bid. Administered Abilify Maintena 400 mg IM 09/06/22 and 10/04/2022. Plan for possible initiation of lithium. 2. Encourage individual, group and milieu therapy 3. Continue q-15 minute check for safety 4. 90-day hold hearing granted as family looks into guardianship. Involuntary Hold Information 96 Hour Hold: 96 Hour Involuntary Admission: Yes 96 Hour Hold Ending Date: 09/04/22 96 Hour Hold Ending Time: 22:25 Attestations NPU Medical Necessity Statement*: Inpatient hospitalization is medically necessary and the clinically appropriate intervention at this time. We will monitor medications and make changes as indicated. Her likely length of stay is 12-19 days. Coding Level of Care Code Acute Production Team Advisor for Ever Fwd Diagnoses Juanita F30.9 Psychosis F29
[2022-10-05 14:00] VITALS: BP 155/100; PULSE 85; RESP 18; TEMP 36.6; O2SAT 98
[2022-10-05 22:00] VITALS: BP 155/92; PULSE 81; RESP 18; TEMP 36.7; O2SAT 96
[2022-10-06 06:00] VITALS: BP 108/66; PULSE 63; RESP 15; TEMP 37; O2SAT 96
[2022-10-06] MEDS: divalproex DR 500 mg Tablet 1000 MG PO ×2 (09:05→20:09)
--- NOTE | 2022-10-06 11:33 | W.PM.NPUPNS ---
Subjective NPU Subjective: Patient is in today denying any specific concerns. She continues to ask questions regularly about the guardianship process and concerns about discharge. We discussed the risks, benefits alternatives of adding 10 mg of oral Abilify given she was stabilized on 30 mg p.o. daily in the past and the 400 mg of Abilify Maintena equates more to 20 mg and she understood and agreed to proceed as documented in his note. Mental Status Exam MSE Comments: This is an overweight woman in hospital scrubs with adequate grooming and eye contact. There is no evidence of any abnormal involuntary motor movements tics or tremors. She is mostly cooperative with exam in no acute distress. Speech was normal in regards to rate rhythm and prosody. Her mood described as okay. Her affect appeared congruent but slightly subdued. Thought process was mostly organized with less periods of disorganization noted. Thought content: patient denies suicidal or homicidal ideation; There was no grandiosity noted and or overvalued ideas appreciated today. Her attention and concentration are mostly intact. Her memory appeared unreliable though none were formally tested. She is alert and oriented to person, place and time but not purpose. Insight and judgment are impaired. Impulse control is improving. Vitals/I&O/Wt Last Vital Signs Temp 98.6 F 10/06/22 06:00 Pulse 63 10/06/22 06:00 Resp 15 10/06/22 06:00 BP 108/66 10/06/22 06:00 Pulse Ox 96 10/06/22 06:00 O2 Del Method 10/06/22 06:00 Data NPU 08/28/22 Unknown 08/28/22 Unknown A&P Assessment and plan (1) Juanita: (2) Psychosis: Plan This is a 52 year old born woman with a possible history of juanita/bipolar disorder in the past who presents appearing manic and off of medication but not believing she needs any assistance, believing that the ones who brought her here are the ones who need help. 1. Continue current medications. Restart abilify 10mg in am to get Abilify level more consistent with a 30 mg dose she was stabilized on. Increased to Depakote DR 1000mg bid we will check Depakote level at the beginning of the week (10/09/2022) administered Abilify Maintena 400 mg IM 09/06/22 and 10/04/2022. Plan for possible initiation of lithium. 2. Encourage individual, group and milieu therapy 3. Continue q-15 minute check for safety 4. 90-day hold hearing granted as family looks into guardianship. Involuntary Hold Information 96 Hour Hold: 96 Hour Involuntary Admission: Yes 96 Hour Hold Ending Date: 09/04/22 96 Hour Hold Ending Time: 22:25 Attestations NPU Medical Necessity Statement*: Inpatient hospitalization is medically necessary and the clinically appropriate intervention at this time. We will monitor medications and make changes as indicated. Her likely length of stay is 11-18 days. Coding Level of Care Code Acute Form Setter/Driver for g Fwd Diagnoses Juanita F30.9 Psychosis F29
[2022-10-06 14:00] VITALS: BP 132/88; PULSE 83; RESP 18; TEMP 36.6; O2SAT 100
[2022-10-06 22:00] VITALS: BP 143/78; PULSE 82; RESP 17; TEMP 36.4
[2022-10-07 06:00] VITALS: RESP 17
[2022-10-07] MEDS: ARIPiprazole 10 mg Tablet PO (08:26)
[2022-10-07] MEDS: divalproex DR 500 mg Tablet 1000 MG PO ×2 (09:44→19:42)
--- NOTE | 2022-10-07 13:54 | W.PM.NPUPNS ---
Subjective NPU Subjective: Patient presents today very thankful about this literary writer's contributions to her stay thus far and hopeful that she will be discharged sooner rather than later. She was somewhat anxious about this literary writer speaking to her son but we discussed that I have spoken to her and will reach out to her son soon. She denies having any significant issues with the addition of Abilify and we discussed that the Aaron returning tomorrow. Mental Status Exam MSE Comments: This is an overweight [place] woman in hospital scrubs with adequate grooming and eye contact. There is no evidence of any abnormal involuntary motor movements tics or tremors. She is mostly cooperative with exam in no acute distress. Speech was normal in regards to rate rhythm and prosody. Her mood described as doing okay. Her affect appeared congruent but slightly subdued. Thought process was mostly organized with less periods of disorganization noted. Thought content: patient denies suicidal or homicidal ideation; There was no grandiosity noted and or overvalued ideas appreciated today. Her attention and concentration are mostly intact. Her memory appeared unreliable though none were formally tested. She is alert and oriented to person, place and time but not purpose. Insight and judgment are impaired. Impulse control is improving. Vitals/I&O/Wt Last Vital Signs Temp 97.6 F 10/06/22 22:00 Pulse 82 10/06/22 22:00 Resp 17 10/07/22 06:00 BP 143/78 10/06/22 22:00 Pulse Ox 100 10/06/22 14:00 O2 Del Method 10/06/22 22:00 Data NPU 08/28/22 Unknown 08/28/22 Unknown A&P Assessment and plan (1) Juanita: (2) Psychosis: Plan This is a 52 year old [place] born woman with a possible history of juanita/bipolar disorder in the past who presents appearing manic and off of medication but not believing she needs any assistance, believing that the ones who brought her here are the ones who need help. 1. Continue current medications. Restarted abilify 10mg in am to get Abilify level more consistent with a 30 mg dose she was stabilized on. Increased to Depakote DR 1000mg bid we will check Depakote level at the beginning of the week (10/09/2022) administered Abilify Maintena 400 mg IM 09/06/22 and 10/04/2022. Plan for possible initiation of lithium. 2. Encourage individual, group and milieu therapy 3. Continue q-15 minute check for safety 4. 90-day hold hearing granted as family looks into guardianship. Involuntary Hold Information 96 Hour Hold: 96 Hour Involuntary Admission: Yes 96 Hour Hold Ending Date: 09/04/22 96 Hour Hold Ending Time: 22:25 Attestations NPU Medical Necessity Statement*: Inpatient hospitalization is medically necessary and the clinically appropriate intervention at this time. We will monitor medications and make changes as indicated. Her likely length of stay is 11-18 days. Coding Level of Care Code Acute Facilities Flight Check Pilot for Ever Fwd Diagnoses Juanita F30.9 Psychosis F29
[2022-10-07 14:00] VITALS: BP 124/83; PULSE 101; RESP 20; TEMP 36.6; O2SAT 97
[2022-10-07 21:27] VITALS: BP 144/86; PULSE 86; RESP 16; TEMP 36.3; O2SAT 98
[2022-10-08 06:00] VITALS: BP 99/64; PULSE 74; RESP 18; TEMP 36.4; O2SAT 95; BMI 33.1
[2022-10-08] MEDS: ARIPiprazole 10 mg Tablet PO (08:20)
[2022-10-08] MEDS: divalproex DR 500 mg Tablet 1000 MG PO ×2 (08:20→21:53)
[2022-10-08 14:00] VITALS: BP 138/88; PULSE 88; RESP 16; TEMP 37.1; O2SAT 97
--- NOTE | 2022-10-08 17:12 | P.NPUPN_ITS ---
Subjective NPU Subjective: Patient is a 52-year-old white female with bipolar disorder with a rule out of schizoaffective disorder bipolar type currently on Depakote and Abilify both IM and additional 10 mg daily. Patient again reports being uncertain about the guardianship process. She reports that she continues to f eel that she has been here too long. She reported no side effects from her medications. She reports that she continues to feel like she could function by herself as she states that she is a smart woman. She reported that she had been praying and doing yoga here and had begged for the staff to let her go. She states that she was uncertain why she had come into the hospital at all. Mental Status Exam MSE Comments: This is an overweight [place] woman in hospital scrubs with adequate grooming and eye contact. There is no evidence of any abnormal involuntary motor movements tics or tremors. She is mostly cooperative with exam in no acute distress. Speech was normal in regards to rate rhythm and prosody. Her mood described as frustrated. Her affect appeared congruent but was brighter. Thought process was mostly organized with less periods of disorganization noted. Thought content: patient denies suicidal or homicidal ideation; There was no grandiosity noted and or overvalued ideas appreciated today. Her attention and concentration are mostly intact. Her memory appeared unreliable though none were formally tested. She is alert and oriented to person, place and time but not purpose. Insight and judgment are impaired. Impulse control is improving. Vitals/I&O/Wt Last Vital Signs Temp 98.7 F 10/08/22 14:00 Pulse 88 10/08/22 14:00 Resp 16 10/08/22 14:00 BP 138/88 10/08/22 14:00 Pulse Ox 97 10/08/22 14:00 O2 Del Method 10/08/22 06:00 Weight last 48 hrs Weight 82.282 kg Data NPU 08/28/22 Unknown 08/28/22 Unknown A&P Assessment and plan (1) Juanita: (2) Psychosis: Plan This is a 52 year old [place] born woman with a possible history of juanita/bipolar disorder in the past who presents appearing manic and off of medication but not believing she needs any assistance, believing that the ones who brought her here are the ones who need help. 1. Continue current medications. Restart abilify 10mg in am to get Abilify le gadiel more consistent with a 30 mg dose she was stabilized on in other hospitalizations. Increased to Depakote DR 1000mg bid we will check Depakote level at the beginning of the week (10/09/2022) administered Abilify Maintena 400 mg IM 09/06/22 and 10/04/2022. Plan for possible initiation of lithium. 2. Encourage individual, group and milieu therapy 3. Continue q-15 minute check for safety 4. 90-day hold hearing granted as family looks into guardianship. Involuntary Hold Information 96 Hour Hold: 96 Hour Involuntary Admission: Yes 96 Hour Hold Ending Date: 09/04/22 96 Hour Hold Ending Time: 22:25 Attestations NPU Medical Necessity Statement*: Inpatient hospitalization is medically necessary and the clinically appropriate intervention at this time. We will monitor medications and make changes as indicated. Her likely length of stay is 11-18 days. Coding Level of Care Code Established Pt Acute Data Integration Architect for [employer] Patient Type Established History Problem Focused Exam Problem Focused Medical Decision Making Straight Forward Diagnoses Juanita F30.9 Psychosis F29
[2022-10-08 19:44] VITALS: BP 130/80; PULSE 75; RESP 16; TEMP 36.4; O2SAT 96
[2022-10-09 06:00] VITALS: BP 103/66; PULSE 73; RESP 15; TEMP 36.9; O2SAT 96
[2022-10-09] MEDS: divalproex DR 500 mg Tablet 1000 MG PO ×2 (09:16→20:15)
[2022-10-09] MEDS: ARIPiprazole 10 mg Tablet PO (09:16)
[2022-10-09 14:00] VITALS: BP 135/89; PULSE 78; RESP 18; TEMP 36.6; O2SAT 95
--- NOTE | 2022-10-09 16:51 | W.PM.NPUPNS ---
Subjective NPU Subjective: Patient is a 52-year-old white female with bipolar disorder with a rule out of schizoaffective disorder bipolar type currently on Depakote 1000mg bid Abilify both IM and additional 10 mg daily. The patient had reported concern about guardianship but stated that she had been hopeful about seeing her family. She had requested that I talk to her current . She reported no side effects from her current medication regimen. She reported that she had been able to sleep. She reports that she has been working on relaxation techniques. Staff notes the patient has been redirectable on the unit. Mental Status Exam MSE Comments: This is an overweight [place] woman in hospital scrubs with adequate grooming and eye contact. There is no evidence of any abnormal involuntary motor movements tics or tremors. She is mostly cooperative with exam in no acute distress. Speech was normal in regards to rate rhythm and prosody. Her mood described as better. Her affect appeared brighter. Thought process was mostly organized. Thought content: patient denies suicidal or homicidal ideation; There was no grandiosity noted and or overvalued ideas appreciated today. Her attention and concentration are mostly intact. Her memory appeared unreliable though none were formally tested. She is alert and oriented to person, place and time but not purpose. Insight and judgment are impaired. Impulse control is improving. Vitals/I&O/Wt Last Vital Signs Temp 97.8 F 10/09/22 14:00 Pulse 78 10/09/22 14:00 Resp 18 10/09/22 14:00 BP 135/89 10/09/22 14:00 Pulse Ox 95 10/09/22 14:00 O2 Del Method 10/08/22 06:00 Weight last 48 hrs Weight 82.282 kg Data NPU 08/28/22 Unknown 08/28/22 Unknown A&P Assessment and plan (1) Juanita: (2) Psychosis: Plan This is a 52 year old [place] born woman with a possible history of juanita/bipolar disorder in the past who presents appearing manic and off of medication but not believing she needs any assistance, believing that the ones who brought her here are the ones who need help. 1. Continue current medications. Restart abilify 10mg in am to get Abilify level more consistent with a 30 mg dose she was stabilized on in other hospitalizations. Continue Depakote DR 1000mg bid we will check Depakote level at the beginning of the week (10/09/2022) administered Abilify Maintena 400 mg IM 09/06/22 and 10/04/2022. Plan for possible initiation of lithium. 2. Encourage individual, group and milieu therapy 3. Continue q-15 minute check for safety 4. 90-day hold hearing granted as family looks into guardianship. Involuntary Hold Information 96 Hour Hold: 96 Hour Involuntary Admission: Yes 96 Hour Hold Ending Date: 09/04/22 96 Hour Hold Ending Time: 22:25 Attestations NPU Medical Necessity Statement*: Inpatient hospitalization is medically necessary and the clinically appropriate intervention at this time. We will monitor medications and make changes as indicated. Her likely length of stay is 7-10 days. 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
[2022-10-09 20:25] VITALS: BP 149/81; PULSE 77; RESP 18; TEMP 36.6; O2SAT 96
[2022-10-10 06:00] VITALS: BP 114/74; PULSE 56; RESP 16; TEMP 36.6; O2SAT 96
[2022-10-10] MEDS: ARIPiprazole 10 mg Tablet PO (09:14)
[2022-10-10] MEDS: divalproex DR 500 mg Tablet 1000 MG PO ×2 (09:14→20:49)
[2022-10-10 14:00] VITALS: BP 130/69; PULSE 85; RESP 17; TEMP 36.6; O2SAT 97
--- NOTE | 2022-10-10 17:30 | P.NPUPN_ITS ---
Subjective NPU Subjective: Patient is a 52-year-old white female with bipolar disorder with a rule out of schizoaffective disorder bipolar type currently on Depakote 1000mg bid Abilify both IM and additional 10 mg daily. The patient had reported feeling better. She has been practicing yoga and relaxation techniques here. She reports improved sleep. She reports no racing thoughts. She had expressed desire to see her family and states that she will continue to take her medications when discharged. She remains uncertain as to where she may go but she reported feeling more assured with follow-up with a potential psychiatrist if it were to be arranged. Mental Status Exam MSE Comments: This is an overweight [place] woman in hospital scrubs with adequate grooming and eye contact. There is no evidence of any abnormal involuntary motor movements tics or tremors. She is cooperative with exam in no acute distress. Speech was normal in regards to rate rhythm and prosody. Her mood described as better. Her affect appeared brighter. Thought process was mostly organized. Thought content: patient denies suicidal or homicidal ideation; There was no grandiosity noted and or overvalued ideas appreciated today. Her attention and concentration are mostly intact. Her memory appeared unreliable though none were formally tested. She is alert and oriented to person, place and time but not purpose. Insight and judgment are impaired. Impulse control is improving. Vitals/I&O/Wt Last Vital Signs Temp 97.9 F 10/10/22 14:00 Pulse 85 10/10/22 14:00 Resp 17 10/10/22 14:00 BP 130/69 10/10/22 14:00 Pulse Ox 97 10/10/22 14:00 O2 Del Method 10/10/22 14:00 Data NPU 08/28/22 Unknown 08/28/22 Unknown A&P Assessment and plan (1) Juanita: (2) Psychosis: Plan This is a 52 year old [place] born woman with a possible history of juanita/bipolar disorder in the past who presents appearing manic and off of medication but not believing she needs any assistance, believing that the ones who brought her here are the ones who need help. 1. Continue current medications. Restart abilify 10mg in am to get Abilify level more consistent with a 30 mg dose she was stabilized on in other hospitalizations. Continue Depakote DR 1000mg bid we will check Depakote level at the beginning of the week (10/09/2022) administered Abilify Maintena 400 mg IM 09/06/22 and 10/04/2022. [place] not needed at this time as it appears that patient has achieved great benefit with the addition of depakote. 2. Encourage individual, group and milieu therapy 3. Continue q-15 minute check for safety 4. 90-day hold hearing granted as family looks into guardianship. Involuntary Hold Information 96 Hour Hold: 96 Hour Involuntary Admission: Yes 96 Hour Hold Ending Date: 09/04/22 96 Hour Hold Ending Time: 22:25 Attestations NPU Medical Necessity Statement*: Inpatient hospitalization is medically necessary and the clinically appropriate intervention at this time. We will monitor medications and make changes as indicated. Her likely length of stay is 7-10 days. 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
[2022-10-10 20:13] VITALS: BP 133/78; PULSE 76; RESP 16; TEMP 36.4; O2SAT 96
[2022-10-11] MEDS: fluticasone nasal spray 16gm Btl 1 SPRAY NASAL (01:10)
[2022-10-11 06:00] VITALS: BP 109/69; PULSE 64; RESP 16; TEMP 36.3; O2SAT 98
[2022-10-11 08:56] LABS: Hematocrit 43.8 % (37.0-47.0); Hemoglobin 13.9 g/dL (11.5-15.3); Mean Corpuscular HGB Conc 31.7 g/dL (30.0-36.0); Mean Corpuscular Hemoglobin 29.7 pg (28.0-34.0); Mean Corpuscular Volume 93.6 fl (81-99); Mean Platelet Volume 9.8 fL (7.4-10.4); Platelet Count 200 10^3/cmm (130-400); Red Blood Count 4.68 10^6/uL (4.1-5.3); Red Cell Distribution Width 12.6 % (12.1-15.1); White Blood Count 5.9 10^3/uL (4.0-10.0)
[2022-10-11] MEDS: divalproex DR 500 mg Tablet 1000 MG PO ×2 (09:07→20:02)
[2022-10-11] MEDS: ARIPiprazole 10 mg Tablet PO (09:07)
[2022-10-11 09:15] LABS: Valproic Acid Level 133.7 ug/mL (50-100)
[2022-10-11 09:46] LABS: Absolute Eosinophils 0.1 10^3/cmm (0.0-0.7); Absolute Neutrophil 3.3 10^3/cmm (1.4-6.5); Absolute Segmented Neutrophil 3.3 10/cmm (1.6-7.1); Blastocytes 0 % (0-0); Eosinophils 3 %; Lymphocytes 23 %; Lymphocytes Absolute 2.1 10^3/cmm (1.2-3.4); Monocytes Absolute 0.4 10^3/cmm (0.1-0.6); Platelet Estimate Normal (Normal); Segmented Neutrophils 56 %; Total Cells Counted 100 (0-100)
[2022-10-11 14:00] VITALS: BP 166/62; PULSE 78; RESP 18; TEMP 36.4; O2SAT 97
--- NOTE | 2022-10-11 17:45 | P.NPUPN_ITS ---
Subjective NPU Subjective: Patient is a 52-year-old white female with bipolar disorder with a rule out of schizoaffective disorder bipolar type currently on Depakote 1000mg bid Abilify both IM and additional 10 mg daily. The patient had indicated that she is hopeful of going with her family today. She had reported that she would continue to take her medications as prescribed. She reported no side effects from these medications currently. She had stated that she had speech spoken with her family and had expressed some concern that the text messages could have been hacked by an unknown person who was trying to gain information about her. She was pleasant and cooperative on the milieu with no acute problems noted. Mental Status Exam MSE Comments: This is an overweight woman in hospital scrubs with adequate grooming and eye contact. There is no evidence of any abnormal involuntary motor movements tics or tremors. She is cooperative with exam in no acute distress. Speech was normal in regards to rate rhythm and prosody. Her mood described as okay. Her affect appeared brighter. Thought process was mostly organized. Thought content: patient denies suicidal or homicidal ideation; There was no grandiosity noted and or overvalued ideas appreciated today. Her attention and concentration are mostly intact. Her memory appeared unreliable though none were formally tested. She is alert and oriented to person, place and time but not purpose. Insight and judgment are guarded. Impulse control is better. Vitals/I&O/Wt Last Vital Signs Temp 97.5 F L 10/11/22 14:00 Pulse 78 10/11/22 14:00 Resp 18 10/11/22 14:00 BP 166/62 10/11/22 14:00 Pulse Ox 97 10/11/22 14:00 O2 Del Method 10/10/22 14:00 Data NPU 10/11/22 08:40 08/28/22 Unknown A&P Assessment and plan (1) Juanita: (2) Psychosis: Plan This is a 52 year old born woman with a possible history of juanita/bipolar disorder in the past who presents appearing manic and off of medication but not believing she needs any assistance, believing that the ones who brought her here are the ones who need help. 1. Continue current medications. Continue abilify 10mg in am to get Abilify level more consistent with a 30 mg dose she was stabilized on in other hos pitalizations. Continue Depakote 1000mg bid we will check Depakote level at the beginning of the week (10/09/2022) administered Abilify Maintena 400 mg IM 09/06/22 and 10/04/2022. [place] not needed at this time as it appears that patient has achieved great benefit with the addition of d epakote. 2. Encourage individual, group and milieu therapy 3. Continue q-15 minute check for safety 4. 90-day hold hearing granted as family looks into guardianship. I spoke with the patient's son who had expressed concern about the patient leaving today as they were still trying to organize and implement a plan of action for guardianship. We will continue to support this endeavor and an occupational therapy evaluation was ordered to evaluate the patient's ability to live independently today. Involuntary Hold Information 96 Hour Hold: 96 Hour Involuntary Admission: Yes 96 Hour Hold Ending Date: 09/04/22 96 Hour Hold Ending Time: 22:25 Attestations NPU Medical Necessity Statement*: Inpatient hospitalization is medically necessary and the clinically appropriate intervention at this time. We will monitor medications and make changes as indicated. Her likely length of stay is 7-10 days. 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
[2022-10-11 20:14] VITALS: BP 150/95; PULSE 69; RESP 18; O2SAT 100
[2022-10-12 06:00] VITALS: RESP 18
[2022-10-12] MEDS: ARIPiprazole 10 mg Tablet PO (08:22)
[2022-10-12] MEDS: divalproex DR 500 mg Tablet 1000 MG PO (08:23)
[2022-10-12 14:00] VITALS: BP 135/90; PULSE 85; RESP 17; TEMP 36.7; O2SAT 98
--- NOTE | 2022-10-12 14:03 | W.PM.NPUPNS ---
Subjective NPU Subjective: Patient is a 52-year-old white female with bipolar disorder with a rule out of schizoaffective disorder bipolar type currently on Depakote 1000mg bid. The patient's Depakote level was 133.7. The patient had reported a desire to leave the hospital and take her medications as prescribed. The patient had shown good evidence of being able to exist independently after the completion of the occupational therapy evaluation. She continued to be engaged in appropriate behavior on the milieu. She had reported adequate sleep and normal appetite. She reports having a good visit with her family members today. She had reported some continued paranoia and distrust of the Internet stating that she had continued to believe that her accounts had been hacked in the past as she had expressed some distrust as regarding information being passed to her family. Mental Status Exam MSE Comments: This is an overweight [place] woman in hospital scrubs with adequate grooming and eye contact. There is no evidence of any abnormal involuntary motor movements tics or tremors. She is pleasant, polite, and cooperative with exam in no acute distress. Speech was normal in regards to rate rhythm and prosody. Her mood described as okay. Her affect appeared brighter. Thought process was mostly organized. Thought content: patient denies suicidal or homicidal ideation; There was no grandiosity noted and or overvalued ideas appreciated today. Her attention and concentration are mostly intact. Her memory appeared unreliable though none were formally tested. She is alert and oriented to person, place and time but not purpose. Insight and judgment are guarded. Impulse control is better. Vitals/I&O/Wt Last Vital Signs Temp 97.5 F L 10/11/22 14:00 Pulse 69 10/11/22 20:14 Resp 18 10/12/22 06:00 BP 150/95 10/11/22 20:14 Pulse Ox 100 10/11/22 20:14 O2 Del Method 10/10/22 14:00 Data NPU 10/11/22 08:40 08/28/22 Unknown A&P Assessment and plan (1) Juanita: (2) Psychosis: Plan This is a 52 year old [place] born woman with a possible history of juanita/bipolar disorder in the past who presents appearing manic and off of medication but not believing she needs any assistance, believing that the ones who brought her here are the ones who need help. 1. Continue abilify 10mg in am to get Abilify level more consistent with a 30 mg dose she was stabilized on in other hospitalizations. Decrease Depakote DR 750mg bid due to elevated Depakote level. administered Abilify Maintena 400 mg IM 09/06/22 and 10/04/2022. [place] not needed at this time as it appears that patient has achieved great benefit with the addition of depakote. 2. Encourage individual, group and milieu therapy 3. Continue q-15 minute check for safety 4. 90-day hold hearing granted as family looks into guardianship. Family meeting tommorow, disposition issues remain a primary concern along with guardianship issues. Involuntary Hold Information 96 Hour Hold: 96 Hour Involuntary Admission: Yes 96 Hour Hold Ending Date: 09/04/22 96 Hour Hold Ending Time: 22:25 Attestations NPU Medical Necessity Statement*: Inpatient hospitalization is medically necessary and the clinically appropriate intervention at this time. We will monitor medications and make changes as indicated. Her likely length of stay is 7-10 days. Coding Level of Care Code Established Pt Acute Physician/Ophthalmologist for Estephanieg Fwd Patient Type Established History Problem Focused Exam Problem Focused Medical Decision Making Straight Forward Diagnoses Juanita F30.9 Psychosis F29
[2022-10-12] MEDS: divalproex DR 500 mg Tablet 750 MG PO (19:44)
[2022-10-12 20:37] VITALS: BP 150/88; PULSE 87; RESP 18; TEMP 36.4; O2SAT 96
[2022-10-13 06:00] VITALS: BP 111/75; PULSE 60; RESP 17; TEMP 37; O2SAT 98
[2022-10-13] MEDS: ARIPiprazole 10 mg Tablet PO (08:34)
[2022-10-13] MEDS: divalproex DR 500 mg Tablet 750 MG PO (08:34)
[2022-10-13 13:28] VITALS: BP 120/81; PULSE 82; RESP 15; TEMP 36.4; O2SAT 99
--- NOTE | 2022-10-13 16:16 | P.NPUDS_ITS ---
Diagnoses at Discharge Discharge Diagnosis (1) Keena: Status: Acute (2) Psychosis: Status: Acute (3) Schizoaffective disorder, bipolar type: Status: Acute Reason for Visit Reason for Visit: Psych Eval Brief History: HPI NPU History of Present Illness Monique Jean is a 52 year old female who presented to the emergency department with the following report: Chief Complaint: Psychiatric Symptoms Stated Complaint: Psych Eval Time Seen by Provider: 08/28/22 17:21 History of Present Illness:?? 52-year-old female presents to the ER for psychiatric clearance.? Patient reports that she agreed to come to the ER because she wants to get rid of her kids patient reports that she has older children that have mental health problems and she reports that they feel that she is having mental health problems.? Patient has family members who are hospital staff and they report that she is has a history of bipolar although she does not not admit to it.? They report that she is a cousin and has not been acting normal.? They believe she is in a manic phase of her bipolar.? Patient talks very rapidly.? Patient will not admit to having any rapid thoughts.? She denies any thoughts of wanting to harm herself or others.? Patient requested a letter that she is medically clear and psychiatric clear.? Patient does agree to have labs done and agrees to speak with a psychiatrist. The patient was admitted to the neuropsychiatric unit for definitive treatment o f those issues. She presents today reporting she has been in multiple inpatient services since 2013 but each of them she describes as some kind of trap that lead to her being hospitalized for inappropriate reasons a couple of times in [place] in [facility] and 2018 in [place]. She reports one time she did not move for 40 days and another time for 28 days. She was very pressured in her speech and sometimes hard to follow but reported that she has never had outpatient services but has been on medications which she reports she has been tricked to be on and spent much of the time that the 39 medications which have been created in [place] ultimately hurt the person that they are treating. She reports she has been on multiple medications. She denies tobacco, alcohol, marijuana or any other illicit drug use or use in her life. She has not had drug and alcohol treatment or drug and alcohol related charges. She presents today that this is all a part of an elaborate ruse from her son, who she made sure to make known to this selling underwriter that he was on medications for years, came to see her in [place] where she had been living in some way estranged from her after which they flew to [place] and drove from [facility] to [place] where they had dinner before coming to [place]. She reports that she went to a [facility] up the street from the hospital. She gives this elaborate story of how when she went in they grabbed her and tried to exorcise her demons from her body and reported that they were very ritualistic and were not letting her move as they tried to get these demons ejected. She reports that when she arrived at that mandaeism, she discovered her was there, who she had not seen in a while, along with her children and that some physician who was a energy manager and after which she went to the hotel on the first day. On the next day, she went to the energy manager?s house and at that time they once again tried to do this exorcism and try to get rid of demons. She reports she does not know why they decided to bring her here and that all she needs is a letter from the doctor stating that her kids could not pull this kind of trick on her ever again. 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 The words she would use, which were very common words, to attempt to explain to this selling underwriter that she has lived all over the world in [facility], in [place], and in different places in the [place]. She reports the things they were attempting to do to her they must have learned from Giorgio Carroll, who she reports is an apostolic energy manager that teaches these kinds of approaches to dealing with people?s struggles. 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 She talked in very expansive fashion about different topics. She does not believe there is anything going on with her and is not interested in any interventions. She reported that people just need to leave her alone. She could not provide anyone we could speak to that would be able to confirm any aspect of her story. She denies any mental illness, reports she is perfectly fine, and anytime there was a mental health intervention, it was under less than truthful circumstances.? Psychiatric History: As above. Substance Abuse History: As above. Family History: She denies any mental health or addiction issues in her family. She denies suicide attempts or completions in her family. Developmental History: She denies any issues with her or , learned to walk and talk and met her developmental milestones on time and denies any need for speech therapy, learning support, emotional support or special education classes. Psychosocial History: She reports her parents were together when she was born and remained together. She has an older and a younger brother. She reports her childhood was fine and she came from a fairly well of family. She denies emotional, physical or sexual abuse. She was hard to follow when we talked about traumas. She could not really elaborate on the difficulties between her and her but did articulate nacho t he came up with [employer] in his cellphone. She endorsed graduating high school, going to college, getting multiple PhDs, Masters degrees, etc. She endorsed she has been 27 years, has a son and daughter and endorses being Romansh. 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 She reports she had rented a house in [place] for the last 2 months when her son brought her out here. Legal History: She denies any legal issues. Medical History: She denies any medical issues except that she reports she is going through menopause. She had her children vaginally. Hospital Course Hospital Course Discharge Summary: The patient upon admission appeared quite manic with active psychotic symptoms. The treatment team had reviewed an extended 6-month hospitalization in [facility] for treating her keena and the patient had appeared to have done well with a combination of Abilify and Depakote. Abilify was initiated and titrated up to 30 mg. At that time it was decided that given her history of noncompliance that an intramuscular injection may be more useful and the patient was given IM Abilify Maintena at 400 mg without any significant side effects. No additional 10 mg orally was given along with the intramuscular injection. Furthermore, Depakote was titrated up to 2000 mg a day and she appeared to have had an elevated Depakote level of 133 and this was lowered down to 1500 mg/day prior to her discharge. The team had spoken with the family several times to help with the patient's disposition issues. The patient's family had been uncertain about where the patient would go with options including [facility] or [facility]. Treatment team and offered full support in efforts to help with follow- up with psychiatric services and in the interim on discharge it was decided that the patient may benefit from temporary follow-up in [place] and an appointment was made with a psychiatric group locally. Guardianship was recommended by the treatment team given her extended history of being unable to manage herself with patient showing continued lack of insight regarding her chronic mental illness. At the time of discharge, lethality was denied and psychosis was resolving.? Mood and anxiety were well managed.? Patient endorsed a plan to avoid all drugs of abuse and follow-up with the aftercare recommendations of the treatment team.? Patient was evaluated and deemed to be absent credible lethality, and had achieved the maximum benefit from an inpatient hospitalization, so was discharge d. During the hospitalization, patient had routine laboratory studies which were within normal limits except for few outliers.? Additionally there was a general medical evaluation which was also within normal limits and revealed no new acute processes. Involuntary Hold Information 96 Hour Hold: 96 Hour Involuntary Admission: Yes 96 Hour Hold Ending Date: 09/04/22 96 Hour Hold Ending Time: 22:25 Mental Status Exam MSE Comments: This is an overweight woman in hospital scrubs with adequate grooming and eye contact. There is no evidence of any abnormal involuntary motor movements tics or tremors. She is pleasant, polite, and cooperative with exam in no acute distress. Speech was normal in regards to rate rhythm and prosody. Her mood described as okay. Her affect appeared brighter. Thought process was mostly organized. Thought content: patient denies suicidal or homicidal ideation; There was no grandiosity noted and or overvalued ideas appreciated today. Her attention and concentration are mostly intact. Her memory appeared unreliable though none were formally tested. She is alert and oriented to person, place and time but not purpose. Insight and judgment are guarded. Impulse control is better. Discharge Data Studies Completed and Pending: Laboratory Results WBC 5.9 10^3/uL (4.0- 10.0) 10/11/22 08:40 RBC 4.68 10^6/uL (4.1 -5.3) 10/11/22 08:40 Hgb 13.9 g/dL (11.5-1 5.3) 10/11/22 08:40 Hct 43.8 % (37.0-47.0 ) 10/11/22 08:40 MCV 93.6 fl (81-99) 10/11/22 08:40 MCH 29.7 pg (28.0-34. 0) 10/11/22 08:40 MCHC 31.7 g/dL (30.0-3 6.0) 10/11/22 08:40 RDW 12.6 % (12.1-15.1 ) 10/11/22 08:40 Plt Count 200 10^3/cmm (130 -400) 10/11/22 08:40 MPV 9.8 fL (7.4-10.4) 10/11/22 08:40 Neut % (Auto) 63.1 % 08/28/22 Unknown Lymph % (Auto) 26.2 % 08/28/22 Unknown Finney % (Auto) 7.5 % 08/28/22 Unknown Eos % (Auto) 2.0 % 08/28/22 Unknown Baso % (Auto) 0.8 % 08/28/22 Unknown Neut # (Auto) 5.62 10^3/uL (1.8 -7.7) 08/28/22 Unknown Lymph # (Auto) 2.3 10^3/uL (0.8- 4.8) 08/28/22 Unknown Finney # (Auto) 0.7 10^3/uL (0.2- 0.9) 08/28/22 Unknown Eos # (Auto) 0.2 10^3/uL (0.0- 0.8) 08/28/22 Unknown Baso # (Auto) 0.1 10^3/uL (0.0- 0.1) 08/28/22 Unknown Nucleated RBC % (a uto) 0 % 08/28/22 Unknown Total Counted 100 (0-100) 10/11/22 08:40 Atypical Lymphs % 12.0 % (0-5) H 10/11/22 08:40 Absolute Neutrophi ls 3.3 10^3/cmm (1.4 -6.5) 10/11/22 08:40 Segmented Neutroph ils 56 % 10/11/22 08:40 Abs Segm Neuts (Ma n) 3.3 10/cmm (1.6-7 .1) 10/11/22 08:40 Band Neutrophils 0.0 % 10/11/22 08:40 Abs Band Neuts (Ma n) 0.0 10^3/cmm (0.0 -1.2) 10/11/22 08:40 Absolute Lymphocyt es 2.1 10^3/cmm (1.2 -3.4) 10/11/22 08:40 Lymphocytes (Manua l) 23 % 10/11/22 08:40 Monocytes (Manual) 6.0 % 10/11/22 08:40 Absolute Monocytes 0.4 10^3/cmm (0.1 -0.6) 10/11/22 08:40 Eosinophils (Manua l) 3 % 10/11/22 08:40 Absolute Eosinophi ls 0.1 10^3/cmm (0.0 -0.7) 10/11/22 08:40 Basophils (Manual) 0.0 % 10/11/22 08:40 Absolute Basophils 0.0 10^3/cmm (0.0 -0.2) 10/11/22 08:40 Metamyelocytes 0.0 % 10/11/22 08:40 Myelocytes 0.0 % 10/11/22 08:40 Promyelocytes 0.0 % 10/11/22 08:40 Nucleated RBCs # 0.0 /100WBC 08/28/22 Unknown Blast Cells 0 % (0-0) 10/11/22 08:40 Platelet Estimate Normal (Normal) 10/11/22 08:40 Sodium 139 mmol/L (136-1 45) 08/28/22 Unknown Potassium 3.7 mmol/L (3.5-5 .1) 08/28/22 Unknown Chloride 101 mmol/L (98-10 7) 08/28/22 Unknown Carbon Dioxide 28 mmol/L (22-29) 08/28/22 Unknown Anion Gap 13.7 (5-19) 08/28/22 Unknown BUN 12 mg/dL (6-20) 08/28/22 Unknown Creatinine 0.6 mg/dL (0.5-0. 9) 08/28/22 Unknown GFR Calculation 105.4 mL/min (90- 130) 08/28/22 Unknown Glucose 118 mg/dL (65-115 ) H 08/28/22 Unknown Calculated Osmolal ity 289 mOsm/kg (285- 295) 08/28/22 Unknown Calcium 9.6 mg/dL (8.5-10 .5) 08/28/22 Unknown Total Bilirubin 0.4 mg/dL (0.15-1 .2) 08/28/22 Unknown AST 40 U/L (0-32) H 08/28/22 Unknown ALT 61 U/L (0-33) H 08/28/22 Unknown Alkaline Phosphata se 115 U/L (35-105) H 08/28/22 Unknown Total Protein 7.6 g/dL (6.6-8.7 ) 08/28/22 Unknown Albumin 4.1 g/dL (3.5-5.2 ) 08/28/22 Unknown Globulin 3.5 g/dL (1.3-4.6 ) 08/28/22 Unknown Urine Color Yellow (Yellow) 08/28/22 20:17 Urine Appearance Clear (CLEAR) 08/28/22 20:17 Urine pH 5 (5-7) 08/28/22 20:17 Ur Specific Gravit y 1.020 (1.005-1.0 30) 08/28/22 20:17 Urine Protein Neg (Negative) 08/28/22 20:17 Urine Glucose (UA) Norm (Normal) 08/28/22 20:17 Urine Ketones Negative (Negati ve) 08/28/22 20:17 Urine Blood Neg (Negative) 08/28/22 20:17 Urine Nitrate Negative (Negati ve) 08/28/22 20:17 Urine Bilirubin Neg (Negative) 08/28/22 20:17 Urine Urobilinogen Norm mg/dL (Negat shiela) 08/28/22 20:17 Ur Leukocyte Carlita ase Negative (Negati ve) 08/28/22 20:17 Salicylates < 0.3 mg/dL (3-10 ) L 08/28/22 Unknown Urine Opiates Scre en Negative ng/mL (N egative) 08/28/22 20:17 Acetaminophen < 5.0 ug/mL (10-3 0) L 08/28/22 Unknown Ur Barbiturates Sc reen Negative ng/mL (N egative) 08/28/22 20:17 Valproic Acid 133.7 ug/mL (50-1 00) H 10/11/22 08:40 Ur Phencyclidine S crn Negative ng/mL (N egative) 08/28/22 20:17 Ur Amphetamines Sc reen Negative ng/mL (N egative) 08/28/22 20:17 U Benzodiazepines Scrn Negative ng/mL (N egative) 08/28/22 20:17 Urine Cocaine Scre en Negative ng/mL (N egative) 08/28/22 20:17 U Marijuana (THC) Screen Negative ng/mL (N egative) 08/28/22 20:17 Vitals: Last Vital Signs Temp 97.5 F L 10/13/22 13:28 Pulse 82 10/13/22 13:28 Resp 15 10/13/22 13:28 BP 120/81 10/13/22 13:28 Pulse Ox 99 10/13/22 13:28 O2 Del Method 10/13/22 06:00 Discharge Plan Discharge Patient Disposition: Home Condition: Stable Prescriptions: New Abilify Maintena 400 mg suspension,extended rel recon 400 mg IM Q28D 28 Days Qty: 1 1RF aripiprazole 10 mg Tablet 10 mg PO DAILY 30 Days Qty: 30 2RF divalproex 500 mg Tablet,Delayed Release (Dr/Ec) 750 mg PO 0900,2100 30 Days Qty: 90 1RF Discharge Orders: Discharge Order (Routine); Ordered 10/13/22 Ordered By: Teofilo Walker Referrals: Jose Jeffrey NP [Other] - 10/19/22 1:30 pm (New provider appointment. Bring your insurance card to appointment. ) [facility] [Outside] - 1-3 days (Walk in status for initial appointment. From 7:30 am to 3:00 pm. Bring completed paperwork. ) Discharge Diet: Usual diet Discharge Activity: Resume usual activity Patient Instructions: Aripiprazole (By mouth) (Abilify, Abilify Discmelt), Divalproex (By mouth) (Depakote, Depakote ER, Depakote Sprinkles), Aripiprazole (By injection) (Abilify Maintena Dual-Chambered..., Opioid Safety Discharge Attestations NPU Time Spent in Discharge Care*: less than 30 min Specific Discharge Activities: Specific discharge activities: educating patient, educating and/or supporting family/caregiver, discussing with pcp/other providers, discussing with cyanide case hardener/social workers/dc planners, documenting/other paperwork and evaluating patient/reviewing data Coding Level of Care Code Established Pt Acute Chg FW DC note Patient Type Established History Problem Focused Exam Problem Focused Medical Decision Making Straight Forward Diagnoses Keena F30.9 Psychosis F29 Schizoaffective disorder, bipolar type F25.0
[2022-10-13 16:45] VITALS: BP 120/81; PULSE 82; RESP 15; TEMP 36.4; O2SAT 99
== END 2022-10-13 17:18 | disposition home or self-care (01) | DRG 885 ==
LOC: ER 21:01 → NP 08-29 06:29
PROVIDERS: Admitting Provider Psychiatry & Neurology Psychiatry; Emergency Provider Student in an Organized Health Care Education/Training Program; Visit Provider Psychiatry & Neurology Psychiatry
DX: F25.0 Schizoaffective disorder, bipolar type (principal)
CPT/HCPCS: 36415; 80053; 80164; 80306; 80307; 81003; 85007; 85025; 85027; 96372; 97150; 97165; 97166; 99285; J1200; J1630; J2060